=== PATIENT | male | born 1960 | race Caucasian/White ===

== ENCOUNTER → 2017-09-27 16:23 | Outpatient (CLI) | payer OTHER, SELFPAY ==
[2017-09-27 17:17] LABS: Absolute Lymphocyte Count 1.67 X10^3/ul (0.83-4.51); Absolute Neutrophil Count 3.4 X10^3/uL (2.0-7.7); Basophil# 0.02 X10^3/uL; Basophil% 0.3 % (0-1); Eosinophil# 0.18 X10^3/uL; Eosinophils% 3.1 % (0-5); Hemoglobin 14.4 g/dl (13.0-16.5); Lymphocyte # 1.67 X10^3/ul (4.0); Lymphocyte % 28.5 % (19-41); Mean Corp Hgb Conc 35.1 g/gl (32-36); Mean Corpuscular Hgb 34.1 pg (27.0-32.0); Mean Corpuscular Volume 97.2 fL (80-94); Mean Platelet Vol. 11.2 fl (6.2-12.0); Monocyte# 0.58 X10^3/uL; Monocyte% 9.9 % (0-10); Neutrophil # 3.38 X10^3/uL (2.7-7.7); Neutrophil % 57.9 % (47-70); Platelet Count 180 K/mm3 (150-450); RBC Distribution Width CV 12.7 % (11.6-14.6); Red Blood Count 4.22 M/mm3 (4.6-6.2); White Blood Count 5.9 K/mm3 (4.4-11.0)
[2017-09-27 17:18] LABS: ALB/GLOB Ratio 1.1 RATIO (0.9-2.4); AST(SGOT) 29 U/L (15-37); Alanine Aminotransfer ALT/SGPT 42 U/L (16-61); Albumin, Serum 3.8 g/dL (3.2-5.0); Alkaline Phosphatase 105 U/L (45-117); Anion Gap 8 (5-15); BUN 13 mg/dL (7-18); BUN/Creat Ratio 14.5 RATIO (10-20); Calcium,Total 8.7 mg/dL (8.5-10.1); Chloride 101 mmol/L (98-107); EST Glomerular Filtration Rate 92 mL/min (>60); Est Glom Filt Rate - Afr Amer 111 mL/min (>60); Globulin 3.6 g/dL (2.2-4.2); Glucose 108 mg/dL (74-106); Potassium 3.7 mmol/L (3.5-5.1); Protein, Total 7.4 g/dL (6.4-8.2); Sodium Level 137 mmol/L (136-145); Thyroid Stim Hormone (TSH) < 0.01 uIU/mL (0.358-3.74)
[2017-09-27 17:58] LABS: POSITIVE COUNT NO; POSITIVE DIFFERENTIAL NO; POSITIVE MORPHOLOGY NO
== END ==
PROVIDERS: Family Provider Family Medicine Geriatric Medicine; PCP Family Medicine Geriatric Medicine; Visit Provider Family Medicine Geriatric Medicine
DX: E11.9 Type 2 diabetes mellitus without complications (principal); E23.6 Other disorders of pituitary gland; I10 Essential (primary) hypertension
CPT/HCPCS: 36415; 80053; 84403; 84443; 85025

== ENCOUNTER → 2018-04-12 16:15 | Outpatient (CLI) | payer OTHER, SELFPAY ==
[2018-04-12 17:16] LABS: Absolute Lymphocyte Count 3.24 X10^3/ul (0.83-4.51); Absolute Neutrophil Count 4.6 X10^3/uL (2.0-7.7); Basophil# 0.01 X10^3/uL; Basophil% 0.1 % (0-1); Eosinophil# 0.17 X10^3/uL; Hematocrit 38.8 % (40-54); Hemoglobin 13.9 g/dl (13.0-16.5); Lymphocyte # 3.24 X10^3/ul (4.0); Lymphocyte % 38.7 % (19-41); Mean Corp Hgb Conc 35.8 g/gl (32-36); Mean Corpuscular Hgb 35.8 pg (27.0-32.0); Mean Platelet Vol. 10.1 fl (6.2-12.0); Monocyte# 0.36 X10^3/uL; Monocyte% 4.3 % (0-10); Neutrophil # 4.58 X10^3/uL (2.7-7.7); Neutrophil % 54.7 % (47-70); Platelet Count 235 K/mm3 (150-450); RBC Distribution Width CV 12.7 % (11.6-14.6); RBC Distribution Width SD 45.5 fl (35.1-43.9); Red Blood Count 3.88 M/mm3 (4.6-6.2); White Blood Count 8.4 K/mm3 (4.4-11.0)
[2018-04-12 17:28] LABS: POSITIVE COUNT NO; POSITIVE DIFFERENTIAL NO; POSITIVE MORPHOLOGY NO
[2018-04-12 17:41] LABS: ALB/GLOB Ratio 1.2 RATIO (0.9-2.4); AST(SGOT) 25 U/L (15-37); Alanine Aminotransfer ALT/SGPT 34 U/L (16-61); Albumin, Serum 4.1 g/dL (3.2-5.0); Alkaline Phosphatase 78 U/L (45-117); Anion Gap 10 (5-15); BUN 12 mg/dL (7-18); BUN/Creat Ratio 11.1 RATIO (10-20); Calcium,Total 8.5 mg/dL (8.5-10.1); Chloride 102 mmol/L (98-107); Creatinine, Serum 1.08 mg/dL (0.70-1.30); EST Glomerular Filtration Rate 74 mL/min (>60); Est Glom Filt Rate - Afr Amer 90 mL/min (>60); Globulin 3.4 g/dL (2.2-4.2); Glucose 106 mg/dL (74-106); PSA,Total - Annual Screen 0.47 ng/mL (0.00-4.00); Potassium 3.5 mmol/L (3.5-5.1); Protein, Total 7.5 g/dL (6.4-8.2); Sodium Level 139 mmol/L (136-145); Thyroid Stim Hormone (TSH) 5.76 uIU/mL (0.358-3.74)
== END ==
PROVIDERS: Family Provider Family Medicine Geriatric Medicine; PCP Family Medicine Geriatric Medicine; Visit Provider Family Medicine Geriatric Medicine
DX: E03.9 Hypothyroidism, unspecified (principal); E11.9 Type 2 diabetes mellitus without complications; I10 Essential (primary) hypertension; E23.6 Other disorders of pituitary gland; Z12.5 Encounter for screening for malignant neoplasm of prostate
CPT/HCPCS: 36415; 80053; 84153; 84403; 84443; 85025; G0103

== ENCOUNTER → 2018-09-13 06:37 | Outpatient (CLI) | payer OTHER, SELFPAY ==
[2018-07-15 13:38] VITALS: BMI 25.8
[2018-09-13 08:15] LABS: AST(SGOT) 25 U/L (15-37); Alanine Aminotransfer ALT/SGPT 31 U/L (16-61); Albumin, Serum 4.2 g/dL (3.2-5.0); Alkaline Phosphatase 68 U/L (45-117); Anion Gap 5 (5-15); BUN 14 mg/dL (7-18); Bilirubin, Direct 0.11 mg/dL (0.00-0.30); Calcium,Total 8.9 mg/dL (8.5-10.1); Chloride 101 mmol/L (98-107); Cholesterol 289 mg/dL (200); Creatinine, Serum 1.08 mg/dL (0.70-1.30); EST Glomerular Filtration Rate 74 mL/min (>60); Est Glom Filt Rate - Afr Amer 90 mL/min (>60); Globulin 3.4 g/dL (2.2-4.2); Glucose 123 mg/dL (74-106); High Density Lipoprotein 39 mg/dL; Magnesium 1.6 mg/dL (1.6-2.6); Potassium 3.7 mmol/L (3.5-5.1); Protein, Total 7.6 g/dL (6.4-8.2); Sodium Level 136 mmol/L (136-145); Triglycerides 824 mg/dL
== END ==
PROVIDERS: Family Provider Family Medicine Geriatric Medicine; PCP Family Medicine Geriatric Medicine; Referring Provider Nurse Practitioner Family; Visit Provider Nurse Practitioner Family
DX: I73.9 Peripheral vascular disease, unspecified (principal); R25.2 Cramp and spasm; Z72.0 Tobacco use; I50.22 Chronic systolic (congestive) heart failure
CPT/HCPCS: 36415; 80048; 80061; 80076; 83735

== ENCOUNTER → 2018-09-21 09:42 | Outpatient (CLI) | payer OTHER, SELFPAY ==
[2018-07-15 13:38] VITALS: BMI 25.8
--- NOTE | 2018-09-21 09:43 | ART_ITS ---
Reason For Study: Claudication Procedure A bilateral lower extremity continuous wave Doppler with analog waveform analysis,segmental pressures,and ankle brachial indexes without exercise. Left Segmental Pressures Left brachial= 162mmHg. Left thigh = 176mmHg. Left calf = 100mmHg. Left posterior tibial artery = 81mmHg. Left dorsalis pedis artery = 85mmHg. Left digit = 62 mmHg. Right Segmental Pressures Right brachial= 161mmHg. Right thigh = 159mmHg. Right calf = 139mmHg. Right posterior tibial artery = 148mmHg. Right dorsalis pedis artery = 147mmHg. Right digit = 129 mmHg. Indices The right ankle brachial index by the posterior tibial artery is 0.91. The right ankle brachial index by the dorsalis pedis is 0.91. The right digital-brachial index is 0.80. The left ankle brachial index by the posterior tibial artery is 0.50. The left ankle brachial index by the dorsalis pedis is 0.52. The left digital-brachial index is 0.38. Interpretation Summary Abnormal right lower extremity CARLIN's 0.91 and 0.91 consistent with mild occlusive disease. Abnormal left lower extremity CARLIN's with PT and DP indices of 0.5 and 0.52 well within the range of vascular claudication with suspected occlusion of the left superficial femoral artery/popliteal. Possble additional small vessel disease left foot. Ordering Physician: Bret Grady Referring Physician: Bret Grady Performed By: Malka Grady RDCS/RVT
== END ==
PROVIDERS: Family Provider Family Medicine Geriatric Medicine; PCP Family Medicine Geriatric Medicine; Referring Provider Nurse Practitioner Family; Visit Provider Nurse Practitioner Family
DX: I73.9 Peripheral vascular disease, unspecified (principal); R25.2 Cramp and spasm; Z72.0 Tobacco use
CPT/HCPCS: 93923

== ENCOUNTER 2018-10-12 07:14 | Day surgery (SDC) | payer OTHER, SELFPAY ==
[2018-10-05 07:50] VITALS: BMI 25.9
[2018-10-06 16:07] LABS: Hematocrit 39.4 % (40-54); Hemoglobin 13.9 g/dl (13.0-16.5); Mean Corp Hgb Conc 35.3 g/gl (32-36); Mean Corpuscular Hgb 34.7 pg (27.0-32.0); Mean Corpuscular Volume 98.3 fL (80-94); Mean Platelet Vol. 10.2 fl (6.2-12.0); Platelet Count 208 K/mm3 (150-450); RBC Distribution Width CV 12.7 % (11.6-14.6); RBC Distribution Width SD 44.3 fl (35.1-43.9); Red Blood Count 4.01 M/mm3 (4.6-6.2); White Blood Count 7.3 K/mm3 (4.4-11.0)
[2018-10-06 16:10] LABS: Scan Indicated on CBC? Y/N NO
[2018-10-06 16:35] LABS: Anion Gap 8 (5-15); BUN 14 mg/dL (7-18); BUN/Creat Ratio 12.8 RATIO (10-20); Chloride 104 mmol/L (98-107); Creatinine, Serum 1.09 mg/dL (0.70-1.30); EST Glomerular Filtration Rate 73 mL/min (>60); Est Glom Filt Rate - Afr Amer 89 mL/min (>60); Glucose 125 mg/dL (74-106); Potassium 3.1 mmol/L (3.5-5.1); Sodium Level 139 mmol/L (136-145)
[2018-10-11 07:09] VITALS: BMI 25.8
[2018-10-12 07:42] LABS: Anion Gap 2 (5-15); BUN 14 mg/dL (7-18); BUN/Creat Ratio 15.1 RATIO (10-20); Calcium,Total 8.9 mg/dL (8.5-10.1); Chloride 109 mmol/L (98-107); Creatinine, Serum 0.93 mg/dL (0.70-1.30); EST Glomerular Filtration Rate 88 mL/min (>60); Est Glom Filt Rate - Afr Amer 107 mL/min (>60); Estimated Creatinine Clearance 81.72 ml/min; Glucose 116 mg/dL (74-106); Potassium 4.3 mmol/L (3.5-5.1); Sodium Level 137 mmol/L (136-145)
--- NOTE | 2018-10-12 11:26 | OP.PCM_ITS ---
Problem List (1) PAD (peripheral artery disease) Status: Acute Report of Operation Date of Procedure: 10/12/18 Pre-Operative Diagnosis: Left lower extremity calf claudication Post-Operative Diagnosis: Occlusion distal left superficial femoral artery Surgery/Procedure Performed:: Abdominal pelvic left lower extremity arteriogram. Left superficial femoral artery 3 x 20 mm savory balloon angioplasty. LS turbo Hawk atherectomy left superficial femoral artery. 6 x 40 mm Powerflex angioplasty left superficial femoral artery Description of Surgical Findings:: Timeout and informed consent was obtained. 58-year-old gentleman was taken to the special procedures lab placed on the table. 50 mcg of fentanyl and 2 mg of Versed were given as intravenous sedation. Right groin was sterilely prepped draped. 2% lidocaine was instilled under ultrasound guidance. Under ultrasound guidance micropuncture needle was inserted into the right common femoral artery micropuncture wire micropuncture sheath and 035 J-wire was used to place a 5 Moldovan short sheath dilator. Using a 035 angled Glidewire a 5 Moldovan universal flush catheter was placed in the abdominal aorta. A AP aortogram was obtained. This demonstrated a small but patent right renal artery. The left kidney appeared to be absent. The flush cath was used to gain access the left common iliac system and using the Glidewire was advanced down to the origin of the left superficial femoral artery. Static views of the left lower extremity were obtained utilizing the Visipaque contrast. Identified a complete occlusion of the distal left superficial femoral artery just distal to Nixon's canal. I exchanged out using an 035 Magic wire and exchanged the 5 Moldovan sheath for a 7 Moldovan destination sheath. At this time the patient received IV heparin based upon weight-based. 8000 units. Additionally based upon ACT measurements during the procedure he received an additional 1000 units. I then utilized a 018 quick cross catheter and an 018 Wire I was able to get true lumen access through the area of complete occlusion with a connect wire I advanced the 018 quick cross catheter to confirm position in the popliteal. Makenna singh over the connector wire I placed a 3 x 20 mm savory balloon and performed balloon angioplasty of the area of complete occlusion. I then exchanged out for a 035 quick cross catheter and through the 035 quick cross catheter I placed a 6 mm spider device into the left popliteal. I then used a LS turbo Hawk and performed atherectomy of the area of complete occlusion of the distal superficial femoral artery. 3 separate passes were performed good material was removed. Completion angiogram demonstrated improvement but lack of complete resolution. I then placed a 6 x 40 mm Powerflex balloon and inflated that at 2 positions up to a maximum of 8 stephen. I then obtained of completion view which demonstrated more improvement in the vessel probably regaining 60% of the lumen but incomplete resolution. I did not want to place a stent graft there was no perforation or leakage and there was now resumption of in-line flow. I elected to leave this having reestablished direct line flow. I captured the spider device and removed it with the 6 mm balloon and there was some debris in the spider device. I completed views of the left lower extremity. The patient tolerated the procedure well there was no discomfort throughout the entire procedure. I then pulled the sheath back replaced a Magic wire inserted a Perclose device secured that secured the opening with excellent hemostasis. The patient had a palpable left popliteal at 2-3+ and he had a 2+ left PT and DP. No apparent complications she was taken to the recovery area in satisfactory condition. Total contrast used 65 cc Images demonstrate a abdominal aorta with seemingly absent left kidney. The right kidney is present with a somewhat diminutive renal artery. There is a small ulceration of the infrarenal aorta. The bilateral common iliacs are patent. The origin of the left internal iliac is 40% stenosis. In the mid right external iliac there is about 30% tortuous stenosis. Other vessels are patent bilateral common femoral profundofemoral and superficial femorals. Then distally left lower extremity at Nixon's canal just distal to there is a 4 cm area of complete occlusion of the SFA. There is a patent left popliteal and patent three-vessel runoff to the left ankle. The proximal left posterior tibial is diseased at least 70%. Subsequent to the angioplasty there is now recapture of a 60% lumen at the area of complete occlusion of the SFA just distal to Nixon's canal. There is straight in-line flow to the ankle. Impression Apparent absence of the left kidney. Small ulceration of the infrarenal aorta. 40% stenosis of the origin of the left internal iliac. 30% stenosis of the right external iliac. Complete occlusion of the distal left superficial femoral artery. Three-vessel runoff to the left lower extremity with 70% stenosis of the very proximal left posterior tibial. Reestablish in-line flow through the superficial femoral with approximately 60% luminal opening. Emiliano Magdaleno M.D., F.A.C.S.
[2018-10-12 15:01] LABS: ACT Activated Clotting Time 241 sec (74-137)
[2018-10-12 15:01] LABS: ACT Activated Clotting Time 131 sec (74-137)
[2018-10-12 15:01] LABS: ACT Activated Clotting Time 235 sec (74-137)
== END 2018-10-12 14:27 | disposition home or self-care (01) ==
LOC: CLSP 07:15
PROVIDERS: Physician Assistant; Family Provider Family Medicine Geriatric Medicine; PCP Family Medicine Geriatric Medicine; Referring Provider Surgery; Visit Provider Surgery
DX: I70.8 Atherosclerosis of other arteries (principal); I73.9 Peripheral vascular disease, unspecified; F10.10 Alcohol abuse, uncomplicated; J44.9 Chronic obstructive pulmonary disease, unspecified; E03.9 Hypothyroidism, unspecified; M54.9 Dorsalgia, unspecified; G89.29 Other chronic pain; E78.5 Hyperlipidemia, unspecified; K21.9 Gastro-esophageal reflux disease without esophagitis; Z72.0 Tobacco use; Z86.010 Personal history of colon polyps; Z86.74 Personal history of sudden cardiac arrest; I50.22 Chronic systolic (congestive) heart failure; Z90.5 Acquired absence of kidney
CPT/HCPCS: 36200; 36245; 36415; 37225; 75625; 75710; 76937; 80048; 85027; 85347; 99152; 99153; C1714; C1760; J7030; J7040; Q9967; C1725; C1769; C1884; C1887; C1894

== ENCOUNTER → 2018-11-25 08:45 | Outpatient (CLI) | payer OTHER, SELFPAY ==
[2018-10-11 07:09] VITALS: BMI 25.8
[2018-11-25 12:27] LABS: Absolute Lymphocyte Count 1.95 X10^3/ul (0.83-4.51); Absolute Neutrophil Count 5.7 X10^3/uL (2.0-7.7); Basophil# 0.01 X10^3/uL; Basophil% 0.1 % (0-1); Eosinophil# 0.18 X10^3/uL; Eosinophils% 2.2 % (0-5); Hematocrit 39.3 % (40-54); Hemoglobin 13.7 g/dl (13.0-16.5); Lymphocyte # 1.95 X10^3/ul (4.0); Lymphocyte % 23.7 % (19-41); Mean Corp Hgb Conc 34.9 g/gl (32-36); Mean Corpuscular Hgb 35.2 pg (27.0-32.0); Mean Platelet Vol. 10.1 fl (6.2-12.0); Monocyte# 0.43 X10^3/uL; Monocyte% 5.2 % (0-10); Neutrophil # 5.65 X10^3/uL (2.7-7.7); Neutrophil % 68.7 % (47-70); Platelet Count 175 K/mm3 (150-450); RBC Distribution Width CV 13.5 % (11.6-14.6); RBC Distribution Width SD 49.6 fl (35.1-43.9); Red Blood Count 3.89 M/mm3 (4.6-6.2); White Blood Count 8.2 K/mm3 (4.4-11.0)
[2018-11-25 12:31] LABS: POSITIVE COUNT NO; POSITIVE DIFFERENTIAL NO; POSITIVE MORPHOLOGY NO
[2018-11-25 12:47] LABS: ALB/GLOB Ratio 1.1 RATIO (0.9-2.4); AST(SGOT) 21 U/L (15-37); Alanine Aminotransfer ALT/SGPT 25 U/L (16-61); Albumin, Serum 3.6 g/dL (3.2-5.0); Alkaline Phosphatase 66 U/L (45-117); Anion Gap 7 (5-15); BUN 13 mg/dL (7-18); BUN/Creat Ratio 13.9 RATIO (10-20); Calcium,Total 8.4 mg/dL (8.5-10.1); Chloride 109 mmol/L (98-107); Creatinine, Serum 0.93 mg/dL (0.70-1.30); EST Glomerular Filtration Rate 88 mL/min (>60); Est Glom Filt Rate - Afr Amer 106 mL/min (>60); Globulin 3.3 g/dL (2.2-4.2); Glucose 118 mg/dL (74-106); Potassium 3.7 mmol/L (3.5-5.1); Protein, Total 6.9 g/dL (6.4-8.2); Sodium Level 141 mmol/L (136-145); Thyroid Stim Hormone (TSH) 2.65 uIU/mL (0.358-3.74)
== END ==
PROVIDERS: Family Provider Family Medicine Geriatric Medicine; PCP Family Medicine Geriatric Medicine; Visit Provider Family Medicine Geriatric Medicine
DX: I10 Essential (primary) hypertension (principal); E11.9 Type 2 diabetes mellitus without complications; F52.8 Other sexual dysfunction not due to a substance or known physiological condition
CPT/HCPCS: 36415; 80053; 84403; 84443; 85025

== ENCOUNTER → 2019-01-02 13:32 | Outpatient (CLI) | payer OTHER, SELFPAY ==
[2018-10-11 07:09] VITALS: BMI 25.8
[2019-01-02 13:52] LABS: Absolute Lymphocyte Count 2.66 X10^3/ul (0.83-4.51); Absolute Neutrophil Count 4.9 X10^3/uL (2.0-7.7); Basophil# 0.01 X10^3/uL; Basophil% 0.1 % (0-1); Eosinophil# 0.15 X10^3/uL; Eosinophils% 1.9 % (0-5); Hematocrit 40.9 % (40-54); Hemoglobin 14.6 g/dl (13.0-16.5); Lymphocyte # 2.66 X10^3/ul (4.0); Lymphocyte % 32.8 % (19-41); Mean Corp Hgb Conc 35.7 g/gl (32-36); Mean Corpuscular Hgb 35.5 pg (27.0-32.0); Mean Corpuscular Volume 99.5 fL (80-94); Mean Platelet Vol. 9.5 fl (6.2-12.0); Monocyte# 0.37 X10^3/uL; Monocyte% 4.6 % (0-10); Neutrophil # 4.88 X10^3/uL (2.7-7.7); Neutrophil % 60.2 % (47-70); Platelet Count 182 K/mm3 (150-450); RBC Distribution Width CV 12.4 % (11.6-14.6); RBC Distribution Width SD 44.5 fl (35.1-43.9); Red Blood Count 4.11 M/mm3 (4.6-6.2); White Blood Count 8.1 K/mm3 (4.4-11.0)
[2019-01-02 13:58] LABS: POSITIVE COUNT NO; POSITIVE DIFFERENTIAL NO; POSITIVE MORPHOLOGY NO
[2019-01-02 14:07] LABS: ALB/GLOB Ratio 1.2 RATIO (0.9-2.4); AST(SGOT) 17 U/L (15-37); Alanine Aminotransfer ALT/SGPT 19 U/L (16-61); Alkaline Phosphatase 63 U/L (45-117); Anion Gap 4 (5-15); BUN 14 mg/dL (7-18); BUN/Creat Ratio 15.8 RATIO (10-20); Calcium,Total 8.9 mg/dL (8.5-10.1); Chloride 107 mmol/L (98-107); Creatinine, Serum 0.88 mg/dL (0.70-1.30); EST Glomerular Filtration Rate 93 mL/min (>60); Est Glom Filt Rate - Afr Amer 113 mL/min (>60); Globulin 3.3 g/dL (2.2-4.2); Glucose 101 mg/dL (74-106); Potassium 4.1 mmol/L (3.5-5.1); Protein, Total 7.3 g/dL (6.4-8.2); Sodium Level 137 mmol/L (136-145)
== END ==
PROVIDERS: Family Provider Family Medicine Geriatric Medicine; PCP Family Medicine Geriatric Medicine; Visit Provider Family Medicine Geriatric Medicine
DX: R10.9 Unspecified abdominal pain (principal)
CPT/HCPCS: 36415; 80053; 85025

== ENCOUNTER → 2019-01-02 14:20 | Outpatient (CLI) | payer OTHER, SELFPAY ==
[2018-10-11 07:09] VITALS: BMI 25.8
== END ==
PROVIDERS: Family Provider Family Medicine Geriatric Medicine; PCP Family Medicine Geriatric Medicine; Referring Provider Family Medicine Geriatric Medicine; Visit Provider Family Medicine Geriatric Medicine
DX: R19.7 Diarrhea, unspecified (principal)
CPT/HCPCS: 82274; 83630; 87177; 87209; 87493; 87506

== ENCOUNTER → 2019-01-02 15:51 | Outpatient (CLI) | payer OTHER, SELFPAY ==
[2018-10-11 07:09] VITALS: BMI 25.8
--- NOTE | 2019-01-02 15:52 | CT_ITS ---
STUDY: CT ABDOMEN AND PELVIS WITH CONTRAST REASON FOR EXAM: Male, 58 years old. Epigastric pain and tenderness. Diarrhea. RADIATION DOSAGE (If Supplied By Facility): CTDIvol = ( 9.04 ) mGy, DLP = ( 696.75 ) mGycm TECHNIQUE: Transaxial images were obtained from the dome of the diaphragm to the symphysis pubis without oral contrast. 100 IV/Oral Isovue 300 was administered. Sagittal and coronal images were reconstructed. Individualized dose optimization techniques were used for this CT. COMPARISON: None. FINDINGS: Lung bases are clear. Visualized heart is normal. Well-defined low-attenuation lesions in the liver measure up to 6 mm. These are too small to characterize. Liver is otherwise unremarkable. The gallbladder is unremarkable. The spleen and pancreas are unremarkable. The adrenal glands are normal. The kidneys are unremarkable. No stones or hydronephrosis. The aorta is normal in caliber. There is no free fluid, free air, or organized collection. No bowel obstruction or inflammatory change. Normal appendix. Urinary bladder is unremarkable. Normal abdominal wall. Normal osseous structures. CT/Abdomen/Pelvis WITH Contrast IMPRESSION: 1. No acute findings. 2. Hepatic hypodensities, too small to characterize, probably benign. Consider follow-up if there is known history of primary malignancy or elevated LFTs. Electronically Signed: Mckenna Caldwell MD at 17:23 EDT Tel , Service support ,
== END ==
PROVIDERS: Family Provider Family Medicine Geriatric Medicine; PCP Family Medicine Geriatric Medicine; Referring Provider Family Medicine Geriatric Medicine; Visit Provider Family Medicine Geriatric Medicine
DX: R10.9 Unspecified abdominal pain (principal)
CPT/HCPCS: 74177; Q9967; A4216

== ENCOUNTER → 2019-01-26 14:37 | Outpatient (CLI) | payer OTHER, SELFPAY ==
[2019-01-10 15:22] VITALS: BMI 25.8
--- NOTE | 2019-01-26 14:38 | ECHOD_ITS ---
Reason For Study: PRE-OPERATIVE Procedure This was a 2D Doppler, Color Flow transthoracic echocardiogram. Exam performed in department. Left Ventricle Normal size and thickness. The estimated ejection fraction is 55 %. Stage 1 diastolic dysfunction. Septal motion consistent with IVCD. No regional wall motion abnormalities noted. Right Ventricle Mildly dilated right ventricle. ICD or pacer leads identified within the right ventricle. Normal systolic function. Atria Normal left atrium. Normal right atrium. Normal atrial septum. Mitral Valve The mitral valve is structurally normal. No prolapse or stenosis seen. Trivial mitral valve insufficiency. Tricuspid Valve Normal tricuspid valve. Trivial tricuspid valve insufficiency. Right ventricular systolic pressure estimated to be 36 mmHg. Aortic Valve Trisinus/trileaflet aortic valve. Normal aortic valve. Pulmonic Valve Normal pulmonic valve. Great Vessels Normal aortic root. Normal arch. Normal inferior vena cava. Inferior vena cava collapse with sniff. Pericardium/Pleural No pericardial effusion. MMode/2D Measurements & Calculations LVIDd: 5.1 cm IVSd: 0.94 cm Ao root diam: 3.4 cm LVIDs: 3.4 cm LVPWd: 0.91 cm RVDd: 3.7 cm FS: 32.6 % LAV(MOD-bp): 56.8 ml LA A4 area: 18.9 cm2 LA dimension(2D): 3.5 cm LAV(MOD-bp) Indexed: 30.1 ml/m2 LAV(MOD-sp2): 56.1 ml LAV(MOD-sp4): 56.4 ml RA A4 area: 15.7 cm2 Time Measurements MV dec time: 0.20 sec Doppler Measurements & Calculations MV E max lai: 66.1 cm/sec Lat Peak E' Lai: 9.2 cm/sec Med Peak E' Lai: 8.3 cm/sec MV A max lai: 101.2 cm/sec E/E' lat: 7.2 E/E' med: 8.0 MV E/A: 0.65 Ao V2 max: 108.2 cm/sec LV V1 max: 90.5 cm/sec PA V2 max: 77.6 cm/sec Ao max P.7 mmHg LV V1 max P.3 mmHg TR max lai: 278.6 cm/sec TR max P.1 mmHg Interpretation Summary The estimated ejection fraction is 55 %. Stage 1 diastolic dysfunction. Mildly dilated right ventricle. Trivial mitral valve insufficiency. Trivial tricuspid valve insufficiency. Right ventricular systolic pressure estimated to be 36 mmHg. Compared to echo report ated 05/19/2017, no appreciable changes noted. Ordering Physician: Neil Persaud Referring Physician: Dionisio Jennings Chi Performed By: Suzanne Bowie RDCS, RVT
== END ==
PROVIDERS: Family Provider Family Medicine Geriatric Medicine; PCP Family Medicine Geriatric Medicine; Referring Provider Internal Medicine Cardiovascular Disease; Visit Provider Internal Medicine Cardiovascular Disease
DX: I73.9 Peripheral vascular disease, unspecified (principal); I50.22 Chronic systolic (congestive) heart failure; R57.0 Cardiogenic shock; J44.9 Chronic obstructive pulmonary disease, unspecified; I10 Essential (primary) hypertension; I42.8 Other cardiomyopathies; Z95.810 Presence of automatic (implantable) cardiac defibrillator
CPT/HCPCS: 93306

== ENCOUNTER → 2019-01-30 09:25 | Outpatient (CLI) | payer OTHER, SELFPAY ==
[2019-01-10 15:22] VITALS: BMI 25.8
--- NOTE | 2019-01-30 09:26 | STEWCON_ITS ---
Reason For Study: PRE OP Stress Results Protocol: Dobutamine with definity Maximum Predicted HR: 160 bpm Target HR: 136 bpm % Maximum Predicted HR: 81 % DurationHeart Rate Stage (mm:ss) (bpm) BP Dose Comment BASELINE 83 154/99 3 CC DEFINITY STAGE 1 4:14 68 181/9210.002 CC DEFINITY STAGE 2 3:00 112 192/9520.00 STAGE 3 3:00 125 160/71744.00 STAGE 4 1:36 129 191/8240.002 CC DEFINITY RECOVERY 86 163/92 2 CC DEFINITY Stress Duration: 11:50 mm:ss Maximum Stress HR: 129 bpm Baseline Echocardiogram Findings The estimated ejection fraction is 65 %. Stress Echo Wall motion Data Resting WM Intermediate WM Stress WM Resting Wall Motion Wall Motion Stress No regional wall motion No regional wall motion abnormalities noted. abnormalities noted. EKG Data The baseline ECG displays normal sinus rhythm. The patient was titrated from 10 mcg to a maximum of 40 mcg of dobutamine during the stress. The maximum heart rate attained was 139 beats per minute. This was 86% of maximum predicted heart rate. During dobutamine infusion, there were no ST or T wave changes noted to suggest ischemia. No clinical angina was noted. Interpretation Summary The estimated ejection fraction is 65 %. Normal, adequate, dobutamine echocardiogram. Negative for ischemia by EKG and echocardiographic criteria. No anginal symptoms noted. Hypertensive blood pressure response to dobutamine. Rare PVCs noted. Decreased sensitivity due to poor echo windows requiring Definity agent. Final LVEF is 75%. Test terminated due to the attainment of target heart rate. No complications. The study was technically difficult. Contrast injection was performed. Ordering Physician: Neil Persaud Referring Physician: Neil Persaud Performed By: Oh Zuluaga RCS
[2019-01-30 13:17] LABS: AST(SGOT) 21 U/L (15-37); Alanine Aminotransfer ALT/SGPT 31 U/L (16-61); Albumin, Serum 4.1 g/dL (3.2-5.0); Alkaline Phosphatase 61 U/L (45-117); Cholesterol 214 mg/dL (200); Globulin 2.9 g/dL (2.2-4.2); High Density Lipoprotein 39 mg/dL; Triglycerides 791 mg/dL
== END ==
PROVIDERS: Family Provider Family Medicine Geriatric Medicine; PCP Family Medicine Geriatric Medicine; Referring Provider Internal Medicine Cardiovascular Disease; Visit Provider Internal Medicine Cardiovascular Disease
DX: I73.9 Peripheral vascular disease, unspecified (principal); Z98.890 Other specified postprocedural states; Z86.74 Personal history of sudden cardiac arrest; I50.22 Chronic systolic (congestive) heart failure; I42.8 Other cardiomyopathies; Z95.810 Presence of automatic (implantable) cardiac defibrillator; R57.0 Cardiogenic shock; I10 Essential (primary) hypertension
CPT/HCPCS: 36415; 80061; 80076; 93017; 93350; J7040; Q9957; A4216; C8928

== ENCOUNTER 2019-02-03 06:00 | Day surgery (SDC) | payer OTHER, SELFPAY ==
--- NOTE | 2019-01-10 03:41 | HP_ITS ---
Intake Vital Signs 01/10/19 Body Mass Index (BMI) 25.8 01/10/19 Height 5 ft 8 in 01/10/19 Weight: 170 lb 01/10/19 Body Mass Index (BMI) 25.8 01/10/19 Blood Pressure 169/87 H 01/10/19 Blood Pressure Location Rt brachial 01/10/19 Respiratory Rate 18 01/10/19 Pulse Rate 96 01/10/19 Pulse Source Monitor 01/10/19 Temperature 98.4 F 01/10/19 Pulse Ox 97 01/10/19 Oxygen Delivery Method room air Intake Visit Reasons: Diarrhea x1 month Chief Complaint: PVD Correspondence Review Clerk Required: No Is patient in pain?: No Allergies rosuvastatin [From Crestor] Adverse Reaction (Severe, Verified 01/10/19 15:21) myalgias and insomnia amoxicillin Adverse Reaction (Verified 01/10/19 15:21) Upset Stomach codeine Adverse Reaction (Verified 01/10/19 15:21) Vomiting Medications Esomeprazole Mag Trihydrate [Nexium] 40 mg PO DAILY 07/11/14 [History Confirmed 01/10/19] Albuterol Inhaler [Ventolin Hfa] 1 - 2 puff INHALATION Q4H PRN PRN #1 inhaler 04/23/16 [Rx Confirmed 01/10/19] Aspirin [Aspirin, Baby] 81 mg PO DAILY@0800 #30 tab.chew 04/23/16 [Rx Confirmed 01/10/19] cholecalciferol (vitamin D3) 1,000 unit capsule 1,000 unit PO QDAY 11/07/17 [History Confirmed 01/10/19] trazodone 100 mg tablet 100 mg PO QHS tab 11/07/17 [History Confirmed 01/10/19] furosemide 40 mg tablet 40 mg PO BID #60 tab 07/04/18 [Rx Confirmed 01/10/19] hydrocodone 7.5 mg-acetaminophen 325 mg tablet 1 tab PO Q4H PRN tab 07/15/18 [History Confirmed 01/10/19] levothyroxine 25 mcg tablet 25 mcg PO DAILY 07/15/18 [History Confirmed 01/10/19] omega-3 fatty acids 1,000 mg capsule 1,000 mg PO DAILY 07/15/18 [History Confirmed 01/10/19] gemfibrozil 600 mg tablet 600 mg PO BID #60 tab 09/13/18 [Rx Confirmed 01/10/19] duloxetine 60 mg capsule,delayed release 60 mg PO DAILY 10/05/18 [History Confirmed 01/10/19] potassium chloride ER 20 mEq tablet,extended release(part/cryst) 20 meq PO BID tab 10/11/18 [History Confirmed 01/10/19] carvedilol 12.5 mg tablet 12.5 mg PO BID #60 tab 11/22/18 [Rx Confirmed 01/10/19] PFSH Medical History S/P arteriogram of extremity (Acute) PAD (peripheral artery disease) (Acute) Personal history of colonic polyps (Acute) History of sudden cardiac arrest successfully resuscitated (Chronic 04/09/16) Hypothyroidism (Chronic) Chronic systolic (congestive) heart failure (Chronic) GERD (gastroesophageal reflux disease) (Chronic) Chronic back pain (Chronic) Non-ischemic cardiomyopathy (Chronic) Hyperlipidemia (Chronic) Left ventricular apical thrombus (Resolved) Cardiogenic shock (Resolved) Alcohol abuse (Chronic) COPD (chronic obstructive pulmonary disease) (Chronic) Tobacco abuse (Chronic) Hypertension (Chronic) Surgical History H/O arthroscopic knee surgery (Chronic) History of tonsillectomy (Chronic) History of left heart catheterization (Chronic 05/22/16) Presence of automatic implantable cardioverter-defibrillator (Chronic 11/19/16) Family History Mother Aortic aneurysm Heart disease Brother Cirrhosis Cancer lymphoma Social History (Updated 01/10/19 @ 16:56 by Emiliano Magdaleno MD) Smoking Status: Current every day smoker HPI HPI HPI: IGLESIA AMARAL, is a 58 M who presents to the office today for HPI HPI Surgical H&P: Yes HPI: IGLESIA AMARAL, is a 58 M who presents to the office today for surgical consultation regarding a personal history of colon polyps and a 1 month history of diarrhea. As of January 02, 2019 his white count was 8.1 with hemoglobin 14.6 hematocrit 40.9 and platelet count of 182,000 with a normal differential. Urine is 14 and creatinine of 0.88. Liver function tests were normal. As of January 02, [address] scan of the abdomen and pelvis was done because of the diarrhea showing hepatic hypodensities too small to characterize probably benign and no acute findings. As January 03, 2019 enteric pathogen panel was negative. Fecal WBCs was negative. C. difficile was negative. Stool occult blood was negative. O&P was negative. Now it is of note that I have assisted him recently in the past because of left lower extremity vascular claudication. His sister is Natan. October 12, 2018 I performed the following procedure Surgery/Procedure Performed:: Abdominal pelvic left lower extremity arteriogram. Left superficial femoral artery 3 x 20 mm savory balloon angioplasty. LS turbo Hawk atherectomy left superficial femoral artery. 6 x 40 mm Powerflex angioplasty left superficial femoral artery He has had a previous colonoscopy thinks in 2010 in [place]. 4 polyps were removed at that time. He does not recall that they were premalignant or malignant. He denies any family history of colon cancer. He denies bright red blood per rectum or melena. He denies any abdominal pain ROS General General: No weight change, appetite, fatigue, colon cancer, breast cancer or weakness HEENT HEENT: No difficulty swallowing, eye injury, eye surgery, swollen glands or hoarseness Endo Endocrine: No thyroid disease, diabetes mellitus, thyroid cancer, Hair loss, heat intolerance or cold intolerance Skin Skin: No rash or changing moles Breast Breast: No left breast lump, right breast lump, nipple discharge, breast pain, abnormal mammogram, abnormal US or breast enlargement Musc Musculoskeletal: Yes back problems; no arthritis, rheumatoid arthritis, gout or joint pain Cardio Cardiovascular: Yes pacemaker, high blood pressure and heart attack; no murmur, heart disease, atrial fibrillation, heart stent, palpitations, shortness of breat with exertion or chest pain Psych Psychiatric: No depression, anxiety or hearing voices Resp Respiratory: No shortness of breath, No sleep apnea, No cough, No COPD, No asthma, No emphysema, No wheezing Gastro Gastrointestinal: No abdominal pain, No nausea or vomiting, Yes diarrhea, No constipation, No blood in stool, Yes acid reflux, No hemorrhoids, No ulcers, No gallbladder problem, No black,tarry stools Sky Hematologic: No blood thinners, No blood disorders, No bleeding, No anemia, No blood clots Neuro Neurologic: No system reviewed and no additional complaints, except as docu, No as per HPI, No abnormal walking, No abnormal hearing, No abnormal movements, No abnormal speech, No behavioral changes, No burning sensations, No confusion, No seizure-like activity, No unsteadiness, No dizziness, No localized weakness, No frequent falls, No headache(s), No lack of coordination, No loss of vision, No memory loss, No numbness, No other visual disturbances, No radiating pain, No restless legs, No sensory deficit, No fainting, No tingling, No tremor(s), No weakness, No other Exam Const General: cooperative, no acute distress Nutritional Appearance: average body habitus Orientation: alert, awake, oriented x3 Chest Breast Palpation: No nipple discharge Other: Increased anterior posterior diameter Resp Effort & Inspection: other (Slightly diminished respiratory excursion) Auscultation: clear to auscultation bilaterally Cardio Rate: regular rate Rhythm: regular rhythm Heart Sounds: no murmurs GI Palpation: soft, no hepatosplenomegaly Auscultation: normal bowel sounds Neuro Cognition: normal cognition Extrem General: no calf tenderness bilaterally Psych Affect: normal affect Assessment & Plan Problems 1. Diarrhea, unspecified type R19.7 2. Personal history of colonic polyps Z86.010 Plan I am recommending the patient a colonoscopy with possible biopsy or polypectomy as indicated. He has a personal history of colon polyps and is overdue for colonoscopy with previous one performed 2010. He has had a one-month history of diarrhea of undetermined etiology. I would additionally plan random colonic biopsies to evaluate for possibility of microcytic colitis. We will keep him on his medications. He does see cardiology and has a pacemaker. We will utilize monitored anesthesia care. I very much appreciate the ongoing opportunity of assisting with his surgical care. CC: Dr. Jennings. and Dr.Newton Emiliano Magdaleno MD. FACS Coding Level of Care Code Off vis,est,level 3 Diagnoses Diarrhea, unspecified type R19.7 ??Diarrhea type: unspecified type Personal history of colonic polyps Z86.010 01/10/19 5096 <Electronically signed by Emiliano short MD> Date _ Emiliano Magdaleno MD I have re-examined the patient. There are no clinical changes since date of exam.
[2019-01-10 15:22] VITALS: BMI 25.8
[2019-02-03] VITALS (7 sets, daily range): BP systolic 119–146; BP diastolic 54–94; PULSE 70–80; RESP 16–18; TEMP 36.2–36.8; O2SAT 98–100; BMI 25.2
--- NOTE | 2019-02-03 07:15 | COLBX_PTH ---
PATIENT: IGLESIA AMARAL LOC: [facility] U#:[id number] AGE/SX: 58/M ROOM: RE02/03/[address]: Dr. Emiliano Magdaleno MD : 1960 BED: DIS: 02/03/2019 SPEC #: [id number] RECD: 02/03/19 11:03 STATUS: CONI KARINA #: [id number] SHREYAS: 02/03/19 07:[address]: Emiliano Magdaleno DEPT: SURGICAL PATHOLOGY RECD BY: Duy Wynn ENTERED: 02/03/19 12:42 SP TYPE: COLON BX OTHR DR: Dr. Dionisio Jennings MD Tissues: A - COLON BIOPSY B - Sigmoid colon biopsy Procedures: Surgery Specimen Level IV HEADER OPERATION: Colonoscopy (MAC) PRE-OP DIAGNOSIS: History of polyps, diarrhea TISSUE SUBMITTED: A - Random colon biopsies, B - Mid sigmoid colon polyp MICROSCOPIC DIAGNOSIS A. Colon, random biopsy: Fragments of colonic mucosa, no pathologic diagnosis. B. Mid sigmoid polyp, biopsy: Hyperplastic polyp. BELEM:brianna 02/06/19 MICROSCOPIC DESCRIPTION Slides are reviewed. GROSS DESCRIPTION A - Received in fixative is one container labeled with the patient's name and designated random colon biopsy. The specimen consists of multiple irregular fragments of light castorena soft tissue that in aggregate measure 1 x 0.5 x 0.1 cm. The specimen is totally submitted in one cassette. B - Received in fixative is one container labeled with the patient's name and designated mid sigmoid polyp. The specimen consists of a castorena-pink polyp measuring 0.7 x 0.5 x 0.4 cm. The specimen is totally submitted in one cassette. / BELEM:brianna 02/03/19 TC: CPT: 62549 x2
--- NOTE | 2019-02-03 07:42 | OP.ENDO_ITS ---
02/03/2019 Dionisio Jennings MD [address] [place] [address] Re : Colonoscopy procedure for Moose Martita Dear Dr. Jennings This procedure was performed on Sunday, February 03, 2019. My impressions and recommendations are as follows: Impressions : - Hemorrhoids found on perianal exam. - Diverticulosis in the sigmoid colon. - One 8 mm polyp in the mid sigmoid colon, removed with a hot snare. Resected and retrieved. Clip was placed. Biopsied. Recommendations : - Repeat colonoscopy in 5 years for surveillance. - Telephone my office for pathology results in 1 week. - Continue present medications. My findings are described in the full procedure note, which is enclosed. If I can be of further assistance, please feel free to contact me at Doctor phone number(s): Work: . Sincerely, Emiliano Magdaleno MD 02/03/2019 7:41:53 AM This report has been signed electronically.
== END 2019-02-03 08:33 | disposition home or self-care (01) ==
LOC: EN 06:01 → AC 06:01
PROVIDERS: Family Provider Family Medicine Geriatric Medicine; PCP Family Medicine Geriatric Medicine; Referring Provider Family Medicine Geriatric Medicine; Visit Provider Surgery
PROC: 0DJD8ZZ Inspection of Lower Intestinal Tract, Via Natural or Artificial Opening Endoscopic (ICD-10-PCS; CPT 45378; principal; 2019-02-03 07:10)
DX: D12.5 Benign neoplasm of sigmoid colon (principal); K64.9 Unspecified hemorrhoids; K57.30 Diverticulosis of large intestine without perforation or abscess without bleeding; Z86.010 Personal history of colon polyps; Z88.0 Allergy status to penicillin; Z86.74 Personal history of sudden cardiac arrest; E03.9 Hypothyroidism, unspecified; I25.5 Ischemic cardiomyopathy; M54.9 Dorsalgia, unspecified; G89.29 Other chronic pain; K21.9 Gastro-esophageal reflux disease without esophagitis; J44.9 Chronic obstructive pulmonary disease, unspecified; I50.22 Chronic systolic (congestive) heart failure; Z95.810 Presence of automatic (implantable) cardiac defibrillator; F17.200 Nicotine dependence, unspecified, uncomplicated; I73.9 Peripheral vascular disease, unspecified; I11.0 Hypertensive heart disease with heart failure
CPT/HCPCS: 45385; 88305; J7120; J2405

== ENCOUNTER → 2019-04-14 08:40 | Outpatient (CLI) | payer OTHER, SELFPAY ==
[2019-02-06 15:30] VITALS: BMI 25.4
[2019-04-14 12:48] LABS: Absolute Lymphocyte Count 1.93 X10^3/uL (0.83-4.51); Absolute Neutrophil Count 3.2 X10^3/uL (2.0-7.7); Basophil# 0.01 X10^3/uL; Basophil% 0.2 % (0-1); Eosinophil# 0.12 X10^3/uL; Eosinophils% 2.1 % (0-5); Hematocrit 40.2 % (40-54); Hemoglobin 13.7 g/dL (13.0-16.5); Lymphocyte # 1.93 X10^3/ul (4.0); Lymphocyte % 33.5 % (19-41); Mean Corp Hgb Conc 34.1 g/dL (32-36); Mean Corpuscular Hgb 36.3 pg (27.0-32.0); Mean Corpuscular Volume 106.6 fL (80-94); Mean Platelet Vol. 9.7 fl (6.2-12.0); Monocyte# 0.43 X10^3/uL; Monocyte% 7.5 % (0-10); NRBC Flagged by Analyzer 0 % (0-5); Neutrophil # 3.23 X10^3/uL (2.7-7.7); Platelet Count 272 K/mm3 (150-450); RBC Distribution Width CV 12.6 % (11.6-14.6); RBC Distribution Width SD 49.6 fl (35.1-43.9); Red Blood Count 3.77 M/mm3 (4.6-6.2); White Blood Count 5.8 K/mm3 (4.4-11.0)
[2019-04-14 13:11] LABS: ALB/GLOB Ratio 1.1 RATIO (0.9-2.4); AST(SGOT) 13 U/L (15-37); Alanine Aminotransfer ALT/SGPT 19 U/L (16-61); Albumin, Serum 3.7 g/dL (3.2-5.0); Alkaline Phosphatase 76 U/L (45-117); Anion Gap 4 (5-15); BUN 18 mg/dL (7-18); BUN/Creat Ratio 20.2 RATIO (10-20); Calcium,Total 9.4 mg/dL (8.5-10.1); Chloride 109 mmol/L (98-107); Creatinine, Serum 0.89 mg/dL (0.70-1.30); EST Glomerular Filtration Rate 92 mL/min (>60); Est Glom Filt Rate - Afr Amer 112 mL/min (>60); Globulin 3.5 g/dL (2.2-4.2); Glucose 109 mg/dL (74-106); PSA,Total - Annual Screen 0.44 ng/mL (0.00-4.00); Potassium 4.1 mmol/L (3.5-5.1); Protein, Total 7.2 g/dL (6.4-8.2); Sodium Level 140 mmol/L (136-145); Thyroid Stim Hormone (TSH) 2.35 uIU/mL (0.358-3.74)
== END ==
PROVIDERS: Family Provider Family Medicine Geriatric Medicine; PCP Family Medicine Geriatric Medicine; Referring Provider Family Medicine Geriatric Medicine; Visit Provider Family Medicine Geriatric Medicine
DX: I10 Essential (primary) hypertension (principal); E11.9 Type 2 diabetes mellitus without complications; E23.6 Other disorders of pituitary gland; Z12.5 Encounter for screening for malignant neoplasm of prostate
CPT/HCPCS: 36415; 80053; 84153; 84403; 84443; 85025; G0103

== ENCOUNTER → 2019-11-29 11:29 | Outpatient (CLI) | payer OTHER, SELFPAY ==
[2019-02-06 15:30] VITALS: BMI 25.4
--- NOTE | 2019-11-29 12:14 | RAD_ITS ---
STUDY: X-RAY - ABDOMEN/PELVIS REASON FOR EXAM: Male, 59 years old. CONSTIPATION X 3 MONTHS TECHNIQUE: AP supine and upright views of the abdomen and pelvis. COMPARISON: None. FINDINGS: Normal visualized lung bases. There is a moderate amount of colonic fecal material. There is no demonstrated free abdominal air. The visualized liver, spleen and kidneys are grossly normal in size and morphology. Normal soft tissue structures. Normal visualized osseous structures. RAD/Abd Decub and/or Erect(Portabl IMPRESSION: Normal x-ray examination of the abdomen and pelvis. Electronically Signed: Marshal Mendoza, at 13:02 EDT , Service support ,
[2019-11-29 12:34] LABS: Absolute Lymphocyte Count 2.12 X10^3/uL (0.83-4.51); Absolute Neutrophil Count 3.6 X10^3/uL (2.0-7.7); Basophil# 0.02 X10^3/uL; Basophil% 0.3 % (0-1); Eosinophil# 0.07 X10^3/uL; Eosinophils% 1.1 % (0-5); Hematocrit 35.2 % (40-54); Hemoglobin 12.7 g/dL (13.0-16.5); Lymphocyte # 2.12 X10^3/ul (4.0); Mean Corp Hgb Conc 36.1 g/dL (32-36); Mean Corpuscular Hgb 36.9 pg (27.0-32.0); Mean Corpuscular Volume 102.3 fL (80-94); Mean Platelet Vol. 9.5 fl (6.2-12.0); Monocyte# 0.44 X10^3/uL; Monocyte% 7.1 % (0-10); NRBC Flagged by Analyzer 0 % (0-5); Neutrophil # 3.56 X10^3/uL (2.7-7.7); Platelet Count 188 K/mm3 (150-450); RBC Distribution Width CV 12.9 % (11.6-14.6); Red Blood Count 3.44 M/mm3 (4.6-6.2); White Blood Count 6.2 K/mm3 (4.4-11.0)
[2019-11-29 13:07] LABS: ALB/GLOB Ratio 1.1 RATIO (0.9-2.4); AST(SGOT) 16 U/L (15-37); Alanine Aminotransfer ALT/SGPT 15 U/L (16-61); Albumin, Serum 3.6 g/dL (3.2-5.0); Alkaline Phosphatase 70 U/L (45-117); Anion Gap 9 (5-15); BUN 14 mg/dL (7-18); BUN/Creat Ratio 15.8 RATIO (10-20); Calcium,Total 8.8 mg/dL (8.5-10.1); Chloride 106 mmol/L (98-107); Creatinine, Serum 0.88 mg/dL (0.70-1.30); EST Glomerular Filtration Rate 93 mL/min (>60); Est Glom Filt Rate - Afr Amer 112 mL/min (>60); Globulin 3.4 g/dL (2.2-4.2); Glucose 147 mg/dL (74-106); Potassium 3.5 mmol/L (3.5-5.1); Sodium Level 141 mmol/L (136-145); Thyroid Stim Hormone (TSH) 6.69 uIU/mL (0.358-3.74)
== END ==
LOC: POLAB3 11:32 → RAD 12:12
PROVIDERS: PCP Family Medicine Geriatric Medicine; Referring Provider Family Medicine Geriatric Medicine; Visit Provider Family Medicine Geriatric Medicine
DX: F52.8 Other sexual dysfunction not due to a substance or known physiological condition (principal); I10 Essential (primary) hypertension; R19.7 Diarrhea, unspecified
CPT/HCPCS: 36415; 74019; 80053; 84403; 84443; 85025

== ENCOUNTER → 2020-04-03 15:09 | Outpatient (CLI) | payer OTHER, SELFPAY ==
[2019-02-06 15:30] VITALS: BMI 25.4
[2020-04-03 15:29] LABS: Absolute Lymphocyte Count 1.85 X10^3/uL (0.83-4.51); Absolute Neutrophil Count 3.1 X10^3/uL (2.0-7.7); Basophil# 0.01 X10^3/uL; Basophil% 0.2 % (0-1); Eosinophil# 0.08 X10^3/uL; Eosinophils% 1.5 % (0-5); Hematocrit 39.9 % (40-54); Hemoglobin 13.7 g/dL (13.0-16.5); Lymphocyte # 1.85 X10^3/ul (4.0); Lymphocyte % 34.9 % (19-41); Mean Corp Hgb Conc 34.3 g/dL (32-36); Mean Corpuscular Hgb 36.1 pg (27.0-32.0); Mean Platelet Vol. 9.4 fl (6.2-12.0); Monocyte# 0.29 X10^3/uL; Monocyte% 5.5 % (0-10); NRBC Flagged by Analyzer 0 % (0-5); Neutrophil # 3.05 X10^3/uL (2.7-7.7); Neutrophil % 57.5 % (47-70); Platelet Count 238 K/mm3 (150-450); RBC Distribution Width SD 46.6 fl (35.1-43.9); White Blood Count 5.3 K/mm3 (4.4-11.0)
--- NOTE | 2020-04-03 15:37 | RAD_ITS ---
STUDY: X-RAY - ABDOMEN/PELVIS REASON FOR EXAM: Male, 60 years old. CHEST PAIN AND SOB. NO ABDOMINAL COMPLAINTS. TECHNIQUE: Single AP view of the abdomen / pelvis. COMPARISON: None. FINDINGS: Normal visualized lung bases. There is a moderate amount of colonic fecal material. The visualized liver, spleen and kidneys are grossly normal in size and morphology. Normal soft tissue structures. There are degenerative changes of the visualized lumbar spine. RAD/Abdomen Single View IMPRESSION: Moderate amount of fecal material is seen in the colon. Electronically Signed: Marshal Mendoza, at 15:52 EDT , Service support ,
--- NOTE | 2020-04-03 15:40 | RAD_ITS ---
STUDY: X-RAY CHEST REASON FOR EXAM: Male, 60 years old. CHEST PAIN AND SOB TECHNIQUE: PA and lateral views of the chest. COMPARISON: Comparison is made with prior study dated 11/20/2016. FINDINGS: Hyperinflation. Scattered calcified granulomas. There is no demonstrated pleural abnormality. Normal size heart. A left-sided ICD is seen. Normal mediastinum and doreen. Normal visualized pulmonary arteries. Normal visualized aortic arch and descending thoracic aorta. There are diffuse degenerative changes of the visualized thoracic spine. Normal visualized ribs, clavicles, and shoulders. There is no demonstrated abnormality of the visualized soft tissue structures of the upper abdomen. RAD/Chest PA and Lateral IMPRESSION: Hyperinflation. No acute abnormality is seen. Electronically Signed: Marshal Mendoza, at 15:51 EDT , Service support ,
[2020-04-03 15:42] LABS: D-Dimer Quantitative (DVT/PE) <= 0.27 FEU/ug/m (0.27-0.49)
[2020-04-03 16:00] LABS: AST(SGOT) 9 U/L (15-37); Alanine Aminotransfer ALT/SGPT 15 U/L (16-61); Albumin, Serum 3.9 g/dL (3.2-5.0); Alkaline Phosphatase 76 U/L (45-117); Anion Gap 5 (5-15); BUN 18 mg/dL (7-18); CPK Total, Creatine Kinase 67 U/L (39-308); Calcium,Total 8.9 mg/dL (8.5-10.1); Chloride 104 mmol/L (98-107); Creatinine, Serum 0.86 mg/dL (0.70-1.30); EST Glomerular Filtration Rate 96 mL/min (>60); Est Glom Filt Rate - Afr Amer 116 mL/min (>60); Globulin 3.9 g/dL (2.2-4.2); Glucose 110 mg/dL (74-106); Protein, Total 7.8 g/dL (6.4-8.2); Sodium Level 137 mmol/L (136-145); Thyroid Stim Hormone (TSH) 3.43 uIU/mL (0.358-3.74)
[2020-04-03 17:31] LABS: BNP,B-Type NATRIURETIC PEPTIDE 25.1 pg/mL (0-100)
[2020-04-05 07:47] LABS: Myoglobin, Serum 31 ng/mL (28-72)
== END ==
PROVIDERS: PCP Family Medicine Geriatric Medicine; Referring Provider Family Medicine Geriatric Medicine; Visit Provider Family Medicine Geriatric Medicine
DX: R07.9 Chest pain, unspecified (principal); R06.89 Other abnormalities of breathing; E03.9 Hypothyroidism, unspecified; R06.02 Shortness of breath; R53.83 Other fatigue; I50.32 Chronic diastolic (congestive) heart failure
CPT/HCPCS: 36415; 71046; 74018; 80053; 82550; 83874; 83880; 84443; 84484; 85025; 85379; 87086

== ENCOUNTER → 2020-04-05 14:45 | Outpatient (CLI) | payer OTHER, SELFPAY ==
--- NOTE | 2020-04-05 14:59 | MRI_ITS ---
STUDY: MRI BRAIN WITHOUT CONTRAST REASON FOR EXAM: Male, 60 years old. delirium -- and quot;not feeling well, fuzzy in head and quot;, no vision or speech change, no paralysis TECHNIQUE: Standardized multiplanar fat and water weighted pulse sequences were obtained. COMPARISON: None. FINDINGS: Normal size of the ventricles and extra-axial spaces for the patient''s age. Normal white matter tracts of the supratentorial brain. Normal bilateral basal ganglia. Normal thalami. There is no extra-axial fluid accumulation. Normal flow voids within the major intracranial circulation suggesting patency by spin echo criteria. Empty sella deformity of uncertain significance. Normal, infundibular stalk, optic chiasm and hypothalamus. Normal tectal plate and pineal gland. Normal midbrain, katelynn and medulla. Normal cerebellum. Normal basal cisterns. Normal bilateral temporal bones. Normal bilateral internal auditory canals. No demonstrated orbital abnormality, within the constraints of a routine brain study. Small mucous retention cyst in the right maxillary sinus. Normal calvarium and skull base. Normal visualized soft tissue structures. Normal visualized upper cervical spine. MRI/Brain without Contrast IMPRESSION: Empty sella deformity of uncertain clinical significance. No appreciable white matter disease. No evidence for obstructive hydrocephalus mass or acute bleed Electronically Signed: Ben Freeman MD at 16:35 EDT , Service support ,
[2020-04-05 15:32] VITALS: BP 149/82; PULSE 97; RESP 23; O2SAT 96
[2020-04-05 15:42] VITALS: BP 149/77; PULSE 93; RESP 20; O2SAT 95
[2020-04-05 15:52] VITALS: BP 151/74; PULSE 90; RESP 20; O2SAT 94
--- NOTE | 2020-04-05 15:57 | NURSING ---
SCAN COMPLETE [id number].
--- NOTE | 2020-04-05 16:01 | NURSING ---
[employer] TURNING ICD BACK TO NORMAL MODE.
== END ==
PROVIDERS: PCP Family Medicine Geriatric Medicine; Referring Provider Family Medicine Geriatric Medicine; Visit Provider Family Medicine Geriatric Medicine
DX: F05 Delirium due to known physiological condition (principal)
CPT/HCPCS: 70551

== ENCOUNTER → 2020-07-31 09:25 | Outpatient (CLI) | payer OTHER, SELFPAY ==
[2020-07-31 08:32] VITALS: BMI 26.7
[2020-07-31 13:04] LABS: AST(SGOT) 33 U/L (15-37); Alanine Aminotransfer ALT/SGPT 24 U/L (16-61); Albumin, Serum 3.6 g/dL (3.2-5.0); Alkaline Phosphatase 89 U/L (45-117); Anion Gap 7 (5-15); BUN 16 mg/dL (7-18); BUN/Creat Ratio 19.6 RATIO (10-20); Calcium,Total 7.8 mg/dL (8.5-10.1); Chloride 105 mmol/L (98-107); Cholesterol 210 mg/dL (200); Creatinine, Serum 0.82 mg/dL (0.70-1.30); EST Glomerular Filtration Rate 102 mL/min (>60); Est Glom Filt Rate - Afr Amer 123 mL/min (>60); Globulin 3.5 g/dL (2.2-4.2); Glucose 147 mg/dL (74-106); High Density Lipoprotein 43 mg/dL; Potassium 3.8 mmol/L (3.5-5.1); Protein, Total 7.1 g/dL (6.4-8.2); Sodium Level 139 mmol/L (136-145); Triglycerides 1499 mg/dL
== END ==
PROVIDERS: PCP Internal Medicine; Referring Provider Physician Assistant Medical; Visit Provider Physician Assistant Medical
DX: E78.5 Hyperlipidemia, unspecified (principal)
CPT/HCPCS: 36415; 80053; 80061

== ENCOUNTER 2020-09-12 10:16 | Emergency (ER) | payer OTHER, SELFPAY ==
[2020-08-29 08:28] VITALS: BMI 26.4
[2020-09-12 10:16] VITALS: BP 167/89; PULSE 97; RESP 18; TEMP 36.6; O2SAT 99; BMI 26.6
--- NOTE | 2020-09-12 10:30 | ED.VIS.LOWEX ---
History of Present Illness Chief Complaint: Lower Extremity Injury Informant: Patient Onset: Yesterday Context: - - awoke w/ pain Timing: Continuous Quality of Pain: Aching - sore Location: lateral right foot Current Severity: Moderate Maximum Severity: Moderate Worsened by: walking, palpation Relieved by: leaving it alone Associated Symptoms: Negative for: Parasthesia, Weakness, Loss of Funtion Narrative: 60-year-old patient with history of heart disease on aspirin and Plavix, not a diabetic, presenting with spontaneous onset of pain and redness in the lateral aspect of his right foot. He denies any injury that he can recall. 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 He denies any fevers, chills, systemic symptoms. I asked him if he might have accidentally stepped on something or had any wounds, foreign bodies, splinters, he states no. Never had a history of gout before. - Past Medical History (1) PAD (peripheral artery disease) Status: Chronic (2) COPD (chronic obstructive pulmonary disease) Status: Chronic (3) Chronic back pain Status: Chronic (4) Chronic systolic (congestive) heart failure Status: Chronic (5) GERD (gastroesophageal reflux disease) Status: Chronic (6) History of sudden cardiac arrest successfully resuscitated Status: Chronic (7) Hyperlipidemia Status: Chronic (8) Hypertension Status: Chronic (9) Hypothyroidism Status: Chronic (10) Scoliosis of lumbar spine Status: Suspected Comment: left (11) Left ventricular apical thrombus Status: Resolved Past Medical History - Allergies and Home Meds Allergies/Adverse Reactions: Allergies bee venom protein (honey bee) Allergy (Severe, Verified 09/12/20 10:19) Swelling rosuvastatin [From Crestor] Adverse Reaction (Severe, Verified 09/12/20 10:19) myalgias and insomnia lisinopril Adverse Reaction (Intermediate, Verified 09/12/20 10:19) sun sensitivity amoxicillin Adverse Reaction (Verified 09/12/20 10:19) Upset Stomach codeine Adverse Reaction (Verified 09/12/20 10:19) Vomiting Primary Care Physician: Katy Long DPM [STAFF PHYSICIAN] - 5-7 Days (If worsening or not improving) Khushi,Heidy, MD [Primary Care Provider] - Surgical History: adenoidectomy, tonsillectomy, - - Arthroscopic knee surgery. Smoking Status: Heavy Smoker (>10/day) - Family History Maternal Family History: Family History (Last Reviewed 08/01/20 @ 16:31 by Gracy SORTO, PA) Mother Aortic aneurysm Heart disease Hypertension Brother Cirrhosis Cancer Alcoholism Father Cancer Sister Hypertension Family History: Reports: No pertinent history Paternal Family History: Family History (Last Reviewed 08/01/20 @ 16:31 by Gracy SORTO, PA) Mother Aortic aneurysm Heart disease Hypertension Brother Cirrhosis Cancer Alcoholism Father Cancer Sister Hypertension Family History: Reports: No pertinent history Review of Systems General: Denies: Chills, Fever, Malaise, Sweats Cardiovascular: Denies: Chest pain, Palpitations Respiratory: Denies: Dyspnea, Cough Gastrointestinal: Denies: Nausea, Vomiting, Diarrhea Musculoskeletal: Reports: Extremity Pain. Denies: Swelling Skin: Denies: Rash, Wounds Neurological: Denies: Headache, Weakness, Numbness Physical Exam Vital Signs/Narrative: Vital Signs Temp Pulse Resp BP Pulse Ox 09/12/20 10:16 97.9 F 97 18 167/89 H 99 Inital Vital Signs reviewed: Yes - Extremity Exam Left Foot: - - Blanching erythema and tenderness localized to the base of the fifth metatarsal. The erythema is not well-circumscribed, and seems to feather out as you get further away into the midfoot. The lateral malleolus is not affected, nor is any other part of the foot. Barely visible plantar aspect. General: Well nourished, Well developed, - - Well-appearing no distress Head: Normocephalic, Atraumatic Eyes: Perrl, EOMI Skin: No Trauma, - - Tender blanching erythema without petechia or purpura/ecchymosis right base fifth metatarsal. Warm but not more so than surrounding areas. Neurological: Alert, Oriented x3, Cranial nerves II-XII grossly intact, Normal Strength, Normal Sensation, Normal Gait Psychological: Normal affect, Normal Mood Diagnostic/Tx/Re-eval - Medical Decision Making X-rays were obtained, on my interpretation 3 view series, these show no acute abnormality at the base of the fifth metatarsal where the focus of pain is. Clinically the bone here is very prominent as it is on the other foot, however the other foot is not affected otherwise. Differential includes infection, mechanical irritation from his boots, which he did not wear here, or a bruise that he cannot remember. There is no obvious nidus for infection here, nor is there an abscess. This is not likely gout given the location. It does not look ischemic, and his toes are all normal-appearing. There is no lymphangitis to make this appear like an obvious infection. We will treat empirically for cellulitis with cephalexin and advised close outpatient follow-up. Patient is comfortable with this overall plan. ED Disposition - Plan for ED Patient: Disposition: Home or Assisted Living Diagnosis: Right foot pain Instructions: ED Cellulitis Prescriptions: Cephalexin [Keflex] 500 mg PO Q6 #28 capsule Transmission Status: Pending to [email or web address] #30 Referrals: Heidy Puri MD [Primary Care Provider] - Katy Long DPM [STAFF PHYSICIAN] - 5-7 Days (If worsening or not improving)
--- NOTE | 2020-09-12 11:26 | RAD_ITS ---
STUDY: X-RAY - RIGHT FOOT CLINICAL: Right foot pain, began yesterday morning, no specific injury. TECHNIQUE: 3 view(s) of the foot. COMPARISON: None. FINDINGS: Normal talus, calcaneus, and tarsal bones. Normal visualized subtalar, talonavicular, calcaneocuboid, tarsal and tarsometatarsal articulations. Normal metatarsi. Normal metatarsophalangeal joint of the great toe. Normal tibial and fibular sesamoid bones. Normal interphalangeal joint of the great toe. Normal phalanges of the great toe. Normal second through fifth metatarsophalangeal joints. Normal interphalangeal joints and phalanges of the lesser toes. The soft tissue structures are unremarkable. RAD/Foot min 3 Views IMPRESSION: Normal x-ray examination of the right foot. Electronically Signed: Jason Cartagena MD at 12:06 EDT Tel , Service support ,
[2020-09-12 11:50] VITALS: BP 147/84; PULSE 94; RESP 18; O2SAT 98
[2020-09-12] MEDS: Cephalexin 250 MG Capsule 500 MG PO (12:59)
== END 2020-09-12 13:14 | disposition home or self-care (01) ==
PROVIDERS: Emergency Provider Emergency Medicine; PCP Internal Medicine
DX: M79.671 Pain in right foot (principal); I73.9 Peripheral vascular disease, unspecified; J44.9 Chronic obstructive pulmonary disease, unspecified; G89.29 Other chronic pain; M54.9 Dorsalgia, unspecified; I50.22 Chronic systolic (congestive) heart failure; I11.0 Hypertensive heart disease with heart failure; K21.9 Gastro-esophageal reflux disease without esophagitis; E03.9 Hypothyroidism, unspecified; E78.5 Hyperlipidemia, unspecified; Z86.74 Personal history of sudden cardiac arrest; M41.9 Scoliosis, unspecified; Z79.02 Long term (current) use of antithrombotics/antiplatelets; Z82.49 Family history of ischemic heart disease and other diseases of the circulatory system; Z88.0 Allergy status to penicillin; Z88.5 Allergy status to narcotic agent
CPT/HCPCS: 73630; 99284

== ENCOUNTER → 2020-09-18 08:41 | Outpatient (CLI) | payer OTHER, SELFPAY ==
[2020-09-12 10:16] VITALS: BMI 26.6
[2020-09-18 10:11] LABS: AST(SGOT) 15 U/L (15-37); Alanine Aminotransfer ALT/SGPT 15 U/L (16-61); Albumin, Serum 3.4 g/dL (3.2-5.0); Alkaline Phosphatase 72 U/L (45-117); Bilirubin, Direct 0.15 mg/dL (0.00-0.30); Cholesterol 214 mg/dL (200); Globulin 3.3 g/dL (2.2-4.2); High Density Lipoprotein 52 mg/dL; Protein, Total 6.7 g/dL (6.4-8.2); Triglycerides 743 mg/dL
[2020-09-18 10:13] LABS: Free T3 2.2 pg/mL (2.18-3.98); T4 Free Direct 0.91 ng/dL (0.76-1.46); Thyroid Stim Hormone (TSH) 3.79 uIU/mL (0.358-3.74)
== END ==
PROVIDERS: Physician Assistant Medical; PCP Internal Medicine; Referring Provider Internal Medicine; Visit Provider Internal Medicine
DX: E03.9 Hypothyroidism, unspecified (principal); E78.1 Pure hyperglyceridemia
CPT/HCPCS: 36415; 80061; 80076; 84439; 84443; 84481

== ENCOUNTER → 2020-10-18 15:58 | Outpatient (CLI) | payer OTHER, SELFPAY ==
[2020-10-18 15:26] VITALS: BMI 25.6
[2020-10-18 17:55] LABS: Follicle Stimulating Hormone 6.1 mIU/mL; Luteinizing Hormone 4.3 mIU/mL; Prolactin 2.3 ng/mL
== END ==
PROVIDERS: PCP Internal Medicine; Referring Provider Internal Medicine Endocrinology, Diabetes & Metabolism; Visit Provider Internal Medicine Endocrinology, Diabetes & Metabolism
DX: E23.6 Other disorders of pituitary gland (principal)
CPT/HCPCS: 36415; 82533; 83001; 83002; 84146; 84305; 84402; 84403

== ENCOUNTER → 2021-01-10 12:09 | Outpatient (CLI) | payer OTHER, SELFPAY ==
[2021-01-10 11:17] VITALS: BMI 25.6
[2021-01-10 12:34] LABS: Absolute Lymphocyte Count 1.58 X10^3/uL (0.83-4.51); Absolute Neutrophil Count 3.4 X10^3/uL (2.0-7.7); Basophil# 0.02 X10^3/uL; Basophil% 0.4 % (0-1); Eosinophil# 0.03 X10^3/uL; Eosinophils% 0.6 % (0-5); Hematocrit 30.8 % (40-54); Hemoglobin 10.6 g/dL (13.0-16.5); Lymphocyte # 1.58 X10^3/ul (0.83-4.51); Mean Corp Hgb Conc 34.4 g/dL (32-36); Mean Corpuscular Hgb 34.5 pg (27.0-32.0); Mean Corpuscular Volume 100.3 fL (80-94); Mean Platelet Vol. 9.5 fl (6.2-12.0); Monocyte# 0.38 X10^3/uL; NRBC Flagged by Analyzer 0 % (0-5); Neutrophil # 3.39 X10^3/uL (2.7-7.7); Neutrophil % 62.3 % (47-70); Platelet Count 184 K/mm3 (150-450); RBC Distribution Width CV 17.4 % (11.6-14.6); RBC Distribution Width SD 62.6 fl (35.1-43.9); Red Blood Count 3.07 M/mm3 (4.6-6.2); White Blood Count 5.4 K/mm3 (4.4-11.0)
[2021-01-10 13:27] LABS: Anion Gap 13 (5-15); BUN 11 mg/dL (7-18); BUN/Creat Ratio 13.1 RATIO (10-20); Calcium,Total 6.3 mg/dL (8.5-10.1); Chloride 99 mmol/L (98-107); Creatinine, Serum 0.84 mg/dL (0.70-1.30); EST Glomerular Filtration Rate 98 mL/min (>60); Est Glom Filt Rate - Afr Amer 119 mL/min (>60); Glucose 181 mg/dL (74-106); Potassium 3.4 mmol/L (3.5-5.1); Sodium Level 138 mmol/L (136-145)
== END ==
PROVIDERS: PCP Internal Medicine; Referring Provider Physician Assistant Medical; Visit Provider Physician Assistant Medical
DX: R53.83 Other fatigue (principal)
CPT/HCPCS: 36415; 80048; 85025

== ENCOUNTER → 2021-01-16 09:19 | Outpatient (CLI) | payer OTHER, SELFPAY ==
[2021-01-10 16:09] VITALS: BMI 25.6
[2021-01-16 10:00] LABS: Vitamin B12 190 pg/mL (211-911)
[2021-01-16 10:06] LABS: Free T3 2.3 pg/mL (2.18-3.98); T4 Free Direct 0.79 ng/dL (0.76-1.46)
== END ==
PROVIDERS: PCP Internal Medicine; Referring Provider Physician Assistant Medical; Visit Provider Physician Assistant Medical
DX: I42.8 Other cardiomyopathies (principal); E83.51 Hypocalcemia; F10.10 Alcohol abuse, uncomplicated
CPT/HCPCS: 36415; 82330; 82533; 82607; 84439; 84481

== ENCOUNTER 2021-01-28 10:21 | Emergency (ER) | payer OTHER, SELFPAY ==
[2021-01-21 14:37] VITALS: BMI 26.3
[2021-01-28 10:22] VITALS: BP 140/82; PULSE 117; RESP 16; TEMP 36.1; O2SAT 97; BMI 26.7
--- NOTE | 2021-01-28 10:35 | ED.VIS.LOWEX ---
HPI History of Present Illness Chief Complaint: Lower Extremity Injury Detail of Chief Complaint: Left foot pain that started yesterday Informant: patient Narrative Narrative: Patient presents to the emergency department with progressively worsening left foot pain that started yesterday. Patient denies any trauma. Patient states that he had a similar episode to the opposite foot years ago and was told it was an infection and eventually symptoms resolved. He does not have history of gout. Patient denies fevers or chills or sweats. Patient currently on prednisone for issues with some fluid in his ears. He took a hydrocodone that he takes for his back and has hydrocodone at home for pain. Patient with history of hypertension and peripheral vascular disease. Prior similar symptoms: Yes [facility] Medical History Alcohol abuse Cardiogenic shock Chronic back pain Chronic systolic (congestive) heart failure COPD (chronic obstructive pulmonary disease) Empty sella syndrome GERD (gastroesophageal reflux disease) High triglycerides History of sudden cardiac arrest successfully resuscitated (04/09/16) Hyperlipidemia Hypertension Hypothyroidism Left ventricular apical thrombus Non-ischemic cardiomyopathy PAD (peripheral artery disease) Personal history of colonic polyps S/P arteriogram of extremity Tobacco abuse Home Medications esomeprazole magnesium 20 mg PO DAILY 07/10/14 [History Last Taken Unknown] hydrocodone 7.5 mg-acetaminophen 325 mg tablet 1 tab PO Q4H PRN tab 07/15/18 [History Last Taken Unknown] duloxetine 60 mg capsule,delayed release 60 mg PO DAILY 10/05/18 [History Last Taken 10/12/18] clopidogrel 75 mg tablet 75 mg PO DAILY #90 tab 03/11/20 [Rx Last Taken Unknown] aspirin 81 mg chewable tablet 81 mg PO DAILY@0800 #90 tablet 09/30/20 [Rx Last Taken Unknown] trazodone 150 mg tablet 150 mg PO DAILY #90 tablet 09/30/20 [Rx Last Taken Unknown] levothyroxine 75 mcg tablet 75 mcg PO DAILY #30 tab 10/18/20 [Rx Last Taken Unknown] carvedilol 12.5 mg tablet 12.5 mg PO BID #180 tab 12/19/20 [Rx Last Taken Unknown] fluticasone propionate 50 mcg/actuation nasal spray,suspension 1 spray INTRANASAL BID #16 g 01/10/21 [Rx Last Taken Unknown] loratadine 10 mg tablet 10 mg PO DAILY #30 tab 01/10/21 [Rx Last Taken Unknown] losartan 25 mg tablet 25 mg PO DAILY #30 tab 01/10/21 [Rx Last Taken Unknown] mecobalamin (vitamin B12) 5,000 mcg disintegrating tablet 5,000 mcg PO DAILY #30 tab 01/20/21 [Rx Last Taken Unknown] potassium chloride 20 mEq tablet,extended release(part/cryst) 20 meq PO BID #180 tab 01/21/21 [Rx Last Taken Unknown] prednisone 10 mg tablet 10 mg PO DAILY #21 tab 01/21/21 [Rx Last Taken Unknown] clindamycin HCl [Cleocin HCl] 300 mg PO Q6H #40 capsule 01/28/21 [Rx Last Taken Unknown] Allergy/AdvReac Type Severity Reaction Status Date / Time bee venom protein (honey bee) Allergy Severe Swelling Verified 01/28/21 10:22 rosuvastatin [From Crestor] AdvReac Severe myalgias Verified 01/28/21 10:22 and insomnia lisinopril AdvReac Intermediate sun Verified 01/28/21 10:22 sensitivity amoxicillin AdvReac Upset Verified 01/28/21 10:22 Stomach codeine AdvReac Vomiting Verified 01/28/21 10:22 Family History Mother Aortic aneurysm Heart disease Hypertension Brother Cirrhosis Cancer lymphoma Alcoholism Father Cancer Sister Hypertension Surgical History H/O arthroscopic knee surgery History of colonoscopy History of left heart catheterization (05/22/16) History of tonsillectomy Presence of automatic implantable cardioverter-defibrillator (11/19/16) Social History Smoking Status: Current every day smoker tobacco type: cigarettes Tobacco: How many years used: 40 alcohol intake: current alcohol intake frequency: 3 or more drinks per day Alcohol type: beer substance use type: does not use what type of physical activity do you participate in: none ROS ROS ED Constitutional Constitutional ED: Reports systems reviewed and no addt'l complaints, except as documented; Denies body ache(s), change in weight or chills Eyes Eyes: Denies acute decrease in peripheral vision, change in vision, double vision or loss of vision ENT ENT ED: Reports none; Denies ear pain, lip swelling, loss taste/smell, neck pain, otalgia or sore throat Cardiovascular Cardiovascular: Reports none; Denies abdominal pain, chest pain with activity, leg edema, lightheadedness, palpitations, rapid heart rate or syncope Respiratory/Chest Respiratory/Chest: Reports none; Denies change in mental status, dry cough, dyspnea, hemoptysis, shortness of breath at rest or shortness of breath with exertion Gastrointestinal Gastrointestinal: Reports none; Denies abdominal pain, change in stool character, diarrhea, hematemesis, hematochezia, melena, rectal bleeding or vomiting Genitourinary Genitourinary ED: Reports none; Denies abdominal discomfort, anuria, dysuria, genital pain or polyuria Musculoskeletal Musculoskeletal: Reports none and other Details: Left foot pain, redness, swelling ; Denies arthralgias, back pain, difficulty walking, extremity pain, muscle weakness or myalgias Integumentary Reports none; Denies abscess or rash Neurologic Neurologic: Reports none; Denies abnormal gait, confusion, focal weakness, frequent falls, headache(s), loss of vision, numbness, paresthesias, radicular pain, vertigo or weakness Psychiatric Psychiatric: Reports systems reviewed and no addt'l complaints, except as documented and none; Denies behavioral changes, confusion, difficulty concentrating, hallucinations, suicidal ideation, tactile hallucinations or visual hallucinations Endocrine Endocrinology: Denies none, cold intolerance, excessive sweating, fatigue or heat intolerance Hematologic/Lymphatic Hematologic/Lymphatic: Reports none; Denies anemia, easy bleeding or easy bruising Allergic/Immunologic Allergic/Immunologic ED: Denies as per HPI, none, lip swelling, mouth swelling, throat swelling, tongue swelling or hives EXAM Physical Exam Const Vital Signs: 01/28/21 10:22 Temperature 97.0 F L Temperature Source Temporal Pulse Rate 117 H Respiratory Rate 16 Blood Pressure 140/82 H Blood Pressure Mean 101 Pulse Ox 97 Oxygen Delivery Method Room Air Positive well nourished and well developed General Appearance ED: well developed and NAD HEENT Reports TM's clear and moist mucous membranes normocephalic and atraumatic; Negative for trauma or tenderness Tympanic Membrane ED: Yes TM's clear Eyes PERRL and EOMs intact bilaterally General Eye ED: Negative for pale conjunctiva or scleral icterus Neck no lymphadenopathy, supple and no JVD General: Negative for tenderness Chest Wall inspection of chest normal and palpation of chest normal Chest: Negative for tenderness Resp normal respiratory effort and clear to auscultation bilaterally Effort and Inspection: Negative for respiratory distress or pain with movement Auscultation: Negative for rhonchi, wheezes or diminished lung sounds Cardio regular rate, regular rhythm, S1 normal heart sound, S2 normal heart sound and no murmurs Peripheral Pulses: pulses 2+ throughout GI normal to inspection, nondistended, normoactive bowel sounds, soft to palpation, non-tender, non-distended and no masses Back/Spine no CVA tenderness and no thoracic nor lumbar tenderness Extremity Extremity Narrative: Evaluation of the left foot does reveal a small amount of edema to the dorsal lateral aspect as well as some faint erythema. Patient has normal dorsal pedal and posterior tibial pulses. Patient has normal cap refill. The foot is warm to touch. Neurovascularly intact. General Extremety ED: Negative for edema General Extremity: Negative for edema Neuro oriented x3, CN's II-XII intact bilaterally, no sensory deficits noted and gait normal Sensorium / Orientation: awake, alert, oriented to person, oriented to place and oriented to time Motor Exam: strength 5/5 throughout and strength abnormal Psych mental status grossly normal Skin no rashes or lesions noted and no wounds MDM MDM MDM Narrative Medical decision making narrative: Etiology of the swelling and erythema unclear. In the differential would be gout versus cellulitis. Patient will be started on clindamycin. Patient to continue with his prednisone at home as well as hydrocodone for pain. He'll be referred to his primary care physician for follow-up within next 3 to 5 days. He is advised to return if worsening pain, redness, swelling, or condition should worsen anyway. Discharge Plan Triage Chief Complaint: Lower Extremity Injury ED Provider: Jaxon Gill Dx/Rx/DC Orders Clinical Impression: Cellulitis of foot, left Instructions: Cellulitis, ED Gout Prescriptions: New clindamycin HCl [Cleocin HCl] 300 MG capsule 300 mg PO Q6H Qty: 40 RF: 0 No Action hydrocodone-acetaminophen 7.5-325 mg tablet 1 tab PO Q4H PRN (Reason: Pain) RF: 0 duloxetine [Cymbalta] 60 mg capsule,delayed release(DR/EC) 60 mg PO DAILY RF: 0 levothyroxine 75 mcg tablet 75 mcg PO DAILY Qty: 30 RF: 10 losartan 25 mg tablet 25 mg PO DAILY Qty: 30 RF: 6 fluticasone propionate [Flonase Allergy Relief] 50 mcg/actuation spray,suspension 1 spray intranasal BID Qty: 16 RF: 0 loratadine 10 mg tablet 10 mg PO DAILY Qty: 30 RF: 0 mecobalamin (vitamin B12) 5,000 mcg tablet,disintegrating 5,000 mcg PO DAILY Qty: 30 RF: 6 potassium chloride 20 mEq tablet,ER particles/crystals 20 meq PO BID Qty: 180 RF: 1 prednisone 10 mg tablet 10 mg PO DAILY Qty: 21 RF: 0 esomeprazole magnesium 20 MG capsule 20 mg PO DAILY RF: 0 clopidogrel [Plavix] 75 mg tablet 75 mg PO DAILY Qty: 90 RF: 3 trazodone 150 mg tablet 150 mg PO DAILY Qty: 90 RF: 1 aspirin 81 mg tablet,chewable 81 mg PO DAILY@0800 Qty: 90 RF: 1 carvedilol 12.5 mg tablet 12.5 mg PO BID Qty: 180 RF: 3 Primary Care Provider: Heidy Puri Referrals: Heidy Puri MD [Primary Care Provider] - 3-5 Days
[2021-01-28 10:46] VITALS: BP 124/69; PULSE 71; RESP 15; O2SAT 98
[2021-01-28] MEDS: Clindamycin HCl 150 MG Capsule 300 MG PO (10:46)
== END 2021-01-28 10:55 | disposition home or self-care (01) ==
LOC: ED 10:50
PROVIDERS: Emergency Provider Emergency Medicine; PCP Internal Medicine
DX: L03.116 Cellulitis of left lower limb (principal); F17.210 Nicotine dependence, cigarettes, uncomplicated; Z95.810 Presence of automatic (implantable) cardiac defibrillator; E03.9 Hypothyroidism, unspecified; E78.1 Pure hyperglyceridemia; E78.5 Hyperlipidemia, unspecified; G89.29 Other chronic pain; I11.0 Hypertensive heart disease with heart failure; I50.22 Chronic systolic (congestive) heart failure; I73.9 Peripheral vascular disease, unspecified; J44.9 Chronic obstructive pulmonary disease, unspecified; K21.9 Gastro-esophageal reflux disease without esophagitis; Z79.52 Long term (current) use of systemic steroids; Z79.82 Long term (current) use of aspirin; Z79.899 Other long term (current) drug therapy; Z87.19 Personal history of other diseases of the digestive system
CPT/HCPCS: 99283

== ENCOUNTER → 2021-02-18 11:43 | Outpatient (CLI) | payer OTHER, SELFPAY ==
[2021-02-18 12:30] LABS: Absolute Lymphocyte Count 1.08 X10^3/uL (0.83-4.51); Absolute Neutrophil Count 2.2 X10^3/uL (2.0-7.7); Eosinophil# 0.03 X10^3/uL; Eosinophils% 0.8 % (0-5); Hematocrit 29.9 % (40-54); Hemoglobin 10.7 g/dL (13.0-16.5); Lymphocyte # 1.08 X10^3/ul (0.83-4.51); Lymphocyte % 30.2 % (19-41); Mean Corp Hgb Conc 35.8 g/dL (32-36); Mean Corpuscular Hgb 36.6 pg (27.0-32.0); Mean Corpuscular Volume 102.4 fL (80-94); Mean Platelet Vol. 9.3 fl (6.2-12.0); Monocyte# 0.25 X10^3/uL; NRBC Flagged by Analyzer 0 % (0-5); Neutrophil # 2.19 X10^3/uL (2.7-7.7); Neutrophil % 61.2 % (47-70); Platelet Count 136 K/mm3 (150-450); RBC Distribution Width CV 14.8 % (11.6-14.6); RBC Distribution Width SD 54.2 fl (35.1-43.9); Red Blood Count 2.92 M/mm3 (4.6-6.2); White Blood Count 3.6 K/mm3 (4.4-11.0)
[2021-02-18 13:31] LABS: Vitamin B12 > 2000 pg/mL (211-911)
== END ==
PROVIDERS: PCP Internal Medicine; Referring Provider Internal Medicine; Visit Provider Internal Medicine
DX: D64.9 Anemia, unspecified (principal)
CPT/HCPCS: 36415; 82607; 82746; 85025

== ENCOUNTER → 2021-02-25 09:05 | Outpatient (CLI) | payer OTHER, SELFPAY ==
[2021-02-25 10:09] LABS: AST(SGOT) 60 U/L (15-37); Alanine Aminotransfer ALT/SGPT 39 U/L (16-61); Alkaline Phosphatase 107 U/L (45-117); Bilirubin, Direct 0.13 mg/dL (0.00-0.30); Cholesterol 284 mg/dL (200); Globulin 3.7 g/dL (2.2-4.2); High Density Lipoprotein 48 mg/dL; Protein, Total 6.7 g/dL (6.4-8.2); Triglycerides 1115 mg/dL
== END ==
PROVIDERS: PCP Internal Medicine; Referring Provider Nurse Practitioner Gerontology; Visit Provider Nurse Practitioner Gerontology
DX: E78.5 Hyperlipidemia, unspecified (principal)
CPT/HCPCS: 36415; 80061; 80076

== ENCOUNTER 2021-08-11 12:50 | Emergency (ER) | payer MEDICAID, SELFPAY ==
[2021-08-11 12:50] VITALS: BP 125/104; PULSE 104; RESP 16; TEMP 37.2; O2SAT 97; BMI 25.0
--- NOTE | 2021-08-11 13:10 | RAD_ITS ---
STUDY: X-RAY - LEFT ELBOW REASON FOR EXAM: Male, 61 years old. Elbow pain and decreased Limited range of motion secondary to a recent fall. TECHNIQUE: 3 view(s) of the elbow. COMPARISON: None. FINDINGS: Nondisplaced radial head fracture. Normal radiocapitellar and ulnotrochlear articulations. Small joint effusion. RAD/Elbow min 3 Views IMPRESSION: Nondisplaced radial head fracture and small joint effusion. Electronically Signed: Marshal Mendoza MD at 13:29 EST ,
--- NOTE | 2021-08-11 15:22 | EX.ED.UPPERE ---
HPI History of Present Illness Chief Complaint: Upper Extremity Injury Detail of Chief Complaint: Injury left elbow due to fall 3 days ago Informant: patient Occured/Mechanism Mechanism/Context: Yes blunt trauma and Yes same level fall Onset/Context/Timing Onset: Days (3 days ago) Context: Sudden Onset Timing: Continuous Quality of Pain: Dull and Aching Current Severity: Mild Maximum Severity: Severe Worsened by: Use of left upper extremity Relieved by: Rest Associated Symptoms Associated Symptoms: Positive for Loss of Funtion; Negative for Parasthesia and Weakness Narrative Narrative: Patient is a 61-year-old male who slipped/tripped 3 days ago. He landed on his left upper extremity. He is complained of elbow pain. He presents today for evaluation. He denies paresthesia, anesthesia or motor weakness. He denies head trauma. He denies neck pain. He denies cardiac respiratory symptoms. Denies black or maroon-colored stool. Tetanus Immunization: 5-10 years Prior similar symptoms: No Recent Illness/Hospitalization: No PFSH PFS Medical History Alcohol abuse Cardiogenic shock Chronic back pain Chronic systolic (congestive) heart failure COPD (chronic obstructive pulmonary disease) Empty sella syndrome GERD (gastroesophageal reflux disease) High triglycerides History of sudden cardiac arrest successfully resuscitated (04/09/16) Hypertension Hypothyroidism Left ventricular apical thrombus Non-ischemic cardiomyopathy PAD (peripheral artery disease) Personal history of colonic polyps S/P arteriogram of extremity Tobacco abuse Home Medications esomeprazole magnesium 20 mg PO DAILY 07/10/14 [History Last Taken Unknown] hydrocodone 7.5 mg-acetaminophen 325 mg tablet 1 tab PO Q4H PRN tab 07/15/18 [History Last Taken Unknown] duloxetine 60 mg capsule,delayed release 60 mg PO DAILY 10/05/18 [History Last Taken 10/12/18] aspirin 81 mg chewable tablet 81 mg PO DAILY@0800 #90 tablet 09/30/20 [Rx Last Taken Unknown] levothyroxine 75 mcg tablet 75 mcg PO DAILY #30 tab 10/18/20 [Rx Last Taken Unknown] carvedilol 12.5 mg tablet 12.5 mg PO BID #180 tab 12/19/20 [Rx Last Taken Unknown] losartan 25 mg tablet 25 mg PO DAILY #30 tab 01/10/21 [Rx Last Taken Unknown] potassium chloride 20 mEq tablet,extended release(part/cryst) 20 meq PO BID #180 tab 01/21/21 [Rx Last Taken Unknown] clopidogrel 75 mg tablet 75 mg PO DAILY #90 tab 02/25/21 [Rx Last Taken Unknown] mecobalamin (vitamin B12) 1,000 mcg chewable tablet 1,000 mcg PO .qod #60 tab 02/25/21 [Rx Last Taken Unknown] trazodone 150 mg tablet 150 mg PO DAILY #90 tablet 04/10/21 [Rx Last Taken Unknown] oxycodone-acetaminophen 1 tab PO Q6H PRN PRN 5 Days #20 tablet 08/11/21 [Rx Last Taken Unknown] Allergy/AdvReac Type Severity Reaction Status Date / Time bee venom protein (honey bee) Allergy Severe Swelling Verified 02/25/21 11:09 rosuvastatin [From Crestor] AdvReac Severe myalgias Verified 02/25/21 11:09 and insomnia lisinopril AdvReac Intermediate sun Verified 02/25/21 11:09 sensitivity amoxicillin AdvReac Upset Verified 02/25/21 11:09 Stomach codeine AdvReac Vomiting Verified 02/25/21 11:09 Family History Mother Aortic aneurysm Heart disease Hypertension Brother Cirrhosis Cancer lymphoma Alcoholism Father Cancer Sister Hypertension Surgical History H/O arthroscopic knee surgery History of colonoscopy History of left heart catheterization (05/22/16) History of tonsillectomy Presence of automatic implantable cardioverter-defibrillator (11/19/16) Social History (Updated 08/11/21 @ 15:[address] Laith Rodríguez MD) household members: none Smoking Status: Current every day smoker tobacco type: cigarettes Tobacco: How many years used: 40 alcohol intake: current alcohol intake frequency: 3 or more drinks per day Alcohol type: beer substance use type: does not use what type of physical activity do you participate in: none ROS ROS ED Constitutional Constitutional ED: Denies chills, fever(s), subjective, sweats or weight loss Eyes Eyes: Denies blurry vision, change in vision or diplopia ENT ENT ED: Denies ear pain, rhinorrhea or sore throat Cardiovascular Cardiovascular: Denies chest pain or palpitations Respiratory/Chest Respiratory/Chest: Denies cough, dyspnea or dyspnea on exertion Gastrointestinal Gastrointestinal: Denies abdominal pain, nausea or vomiting Musculoskeletal Musculoskeletal: Denies back pain, myalgias or neck pain Integumentary Denies Abrasions or rash Neurologic Neurologic: Denies headache(s), paresthesias or weakness Hematologic/Lymphatic Hematologic/Lymphatic: Denies easy bleeding or easy bruising EXAM Physical Exam Const Vital Signs: 08/11/21 12:50 Temperature 98.9 F Temperature Source Temporal Pulse Rate 104 H Respiratory Rate 16 Blood Pressure 125/104 H Blood Pressure Mean 111 Pulse Ox 97 Oxygen Delivery Method Room Air Positive well nourished and well developed General Appearance ED: well developed and NAD; Negative for cyanotic or diaphoretic HEENT Reports moist mucous membranes normocephalic and atraumatic Eyes PERRL and EOMs intact bilaterally Neck full ROM and supple Resp normal respiratory effort Cardio regular rate and regular rhythm Extremity Left Upper Extremity: elbow joint inspection (Normal), palpation (Pain to palpation over the radial head), ROM (Limited flexion extension and supination and pronation.) and neurovascular exam (Axillary, median, radial and ulnar function intact. Radial pulses palpable.) Neuro oriented x3 and CN's II-XII intact bilaterally Sensorium / Orientation: alert Psych mental status grossly normal Skin Lesions: no lesions Rashes: no rashes Trauma: no lacerations or abrasions MDM MDM MDM Narrative Medical decision making narrative: X-rays ordered per nurse protocol. Concern patient has a radial head fracture based on Three-view x-ray of the elbow was obtained and there is an anterior and posterior fat pad noted. There is a nondisplaced fracture of the radial head. Treatment is sling and referred to orthopedics. Radiography Diagnostic Testing: Clinical Impression(s) from Imaging Studies Elbow X-Ray 08/11/21 13:10 IMPRESSION: Nondisplaced radial head fracture and small joint effusion. Electronically Signed: Marshal Mendoza MD at 13:29 EST , Discharge Plan Triage Chief Complaint: Upper Extremity Injury ED Provider: Laith Rodríguez Dx/Rx/DC Orders Clinical Impression: Nondisplaced fracture of head of left radius Instructions: ED Radial Head Fracture Prescriptions: New oxycodone-acetaminophen [oxycodone-acetaminophen] 1 TABLET tablet 1 tab PO Q6H PRN PRN (Reason: pain) 5 Days Qty: 20 RF: 0 No Action hydrocodone-acetaminophen 7.5-325 mg tablet 1 tab PO Q4H PRN (Reason: Pain) RF: 0 duloxetine [Cymbalta] 60 mg capsule,delayed release(DR/EC) 60 mg PO DAILY RF: 0 levothyroxine 75 mcg tablet 75 mcg PO DAILY Qty: 30 RF: 10 losartan 25 mg tablet 25 mg PO DAILY Qty: 30 RF: 6 clopidogrel [Plavix] 75 mg tablet 75 mg PO DAILY Qty: 90 RF: 3 potassium chloride 20 mEq tablet,ER particles/crystals 20 meq PO BID Qty: 180 RF: 1 mecobalamin (vitamin B12) 1,000 mcg tablet,chewable 1,000 mcg PO .qod Qty: 60 RF: 1 esomeprazole magnesium 20 MG capsule 20 mg PO DAILY RF: 0 aspirin 81 mg tablet,chewable 81 mg PO DAILY@0800 Qty: 90 RF: 1 carvedilol 12.5 mg tablet 12.5 mg PO BID Qty: 180 RF: 3 trazodone 150 mg tablet 150 mg PO DAILY Qty: 90 RF: 1 Primary Care Provider: Heidy Puri Referrals: Heidy Puri MD [Primary Care Provider] - Neftali Colbert MD [STAFF PHYSICIAN] - 5-7 Days Activity Restrictions/Additional Instructions: 1. Apply ice to left elbow 6-8 times a day 2. Limited range of motion with extension flexion every 1-2 hours to prevent you from getting a stiff/frozen joint 3. Take medication as prescribed for pain. Disposition Disposition: Home, Self Care
[2021-08-11 15:43] VITALS: PULSE 98; RESP 17; O2SAT 96
== END 2021-08-11 15:46 | disposition home or self-care (01) ==
LOC: ED 15:39
PROVIDERS: Emergency Provider Emergency Medicine; PCP Internal Medicine; Visit Provider Emergency Medicine
DX: S52.302A Unspecified fracture of shaft of left radius, initial encounter for closed fracture (principal); J44.9 Chronic obstructive pulmonary disease, unspecified; I11.0 Hypertensive heart disease with heart failure; I42.8 Other cardiomyopathies; I50.22 Chronic systolic (congestive) heart failure; M54.9 Dorsalgia, unspecified; F17.210 Nicotine dependence, cigarettes, uncomplicated; S52.126A Nondisplaced fracture of head of unspecified radius, initial encounter for closed fracture; W18.30XA Fall on same level, unspecified, initial encounter; G89.29 Other chronic pain; K21.9 Gastro-esophageal reflux disease without esophagitis; Z86.74 Personal history of sudden cardiac arrest
CPT/HCPCS: 73080; 99283

== ENCOUNTER 2021-08-27 13:32 | Outpatient (CLI) | payer OTHER, SELFPAY ==
[2021-08-27 15:08] LABS: Absolute Lymphocyte Count 1.48 X10^3/uL (0.83-4.51); Basophil# 0.01 X10^3/uL; Basophil% 0.2 % (0-1); Eosinophils% 1.7 % (0-5); Hematocrit 32.2 % (40-54); Hemoglobin 10.3 g/dL (13.0-16.5); Lymphocyte # 1.48 X10^3/ul (0.83-4.51); Lymphocyte % 25.2 % (19-41); Mean Platelet Vol. 9.3 fl (6.2-12.0); Monocyte# 0.25 X10^3/uL; Monocyte% 4.3 % (0-10); NRBC Flagged by Analyzer 0 % (0-5); Neutrophil % 67.9 % (47-70); POSITIVE MORPHOLOGY YES; Platelet Count 300 K/mm3 (150-450); RBC Distribution Width CV 19.5 % (11.6-14.6); RBC Distribution Width SD 70.1 fl (35.1-43.9); Red Blood Count 3.22 M/mm3 (4.6-6.2); White Blood Count 5.9 K/mm3 (4.4-11.0)
[2021-08-27 15:10] LABS: Differential Indicated SCAN CRITERIA MET
[2021-08-27 15:22] LABS: Vitamin D,25 Hydroxy 10.3 ng/mL
[2021-08-27 15:23] LABS: Hemoglobin A1c 4.8 % (3.8-5.6)
[2021-08-27 15:37] LABS: Differential Comment SCANNED
[2021-08-27 15:57] LABS: AST(SGOT) 53 U/L (15-37); Alanine Aminotransfer ALT/SGPT 31 U/L (16-61); Albumin, Serum 3.5 g/dL (3.2-5.0); Alkaline Phosphatase 113 U/L (45-117); Anion Gap 8 (5-15); BUN 17 mg/dL (7-18); BUN/Creat Ratio 20.5 RATIO (10-20); Calcium,Total 7.4 mg/dL (8.5-10.1); Chloride 109 mmol/L (98-107); Cholesterol 187 mg/dL (200); Creatinine, Serum 0.83 mg/dL (0.70-1.30); EST Glomerular Filtration Rate 99 mL/min (>60); Est Glom Filt Rate - Afr Amer 120 mL/min (>60); Free T3 2.2 pg/mL (2.18-3.98); Globulin 3.6 g/dL (2.2-4.2); Glucose 144 mg/dL (74-106); High Density Lipoprotein 51 mg/dL; PSA,Total - Annual Screen 0.22 ng/mL (0.00-4.00); Potassium 4.4 mmol/L (3.5-5.1); Protein, Total 7.1 g/dL (6.4-8.2); Sodium Level 141 mmol/L (136-145); T4 Free Direct 0.87 ng/dL (0.76-1.46); Thyroid Stim Hormone (TSH) 3.84 uIU/mL (0.358-3.74); Triglycerides 433 mg/dL
== END 2021-08-27 23:59 | disposition home or self-care (01) ==
PROVIDERS: PCP Internal Medicine; Referring Provider Internal Medicine; Visit Provider Internal Medicine
DX: D51.9 Vitamin B12 deficiency anemia, unspecified (principal); J44.9 Chronic obstructive pulmonary disease, unspecified; I50.22 Chronic systolic (congestive) heart failure; I73.9 Peripheral vascular disease, unspecified; E23.6 Other disorders of pituitary gland; R53.83 Other fatigue; E03.9 Hypothyroidism, unspecified; K21.9 Gastro-esophageal reflux disease without esophagitis; F10.10 Alcohol abuse, uncomplicated; Z72.0 Tobacco use; I10 Essential (primary) hypertension
CPT/HCPCS: 36415; 80053; 80061; 82306; 83036; 84153; 84403; 84439; 84443; 84481; 85025; G0103